=== PATIENT | male | born 1970 | race Caucasian/White ===

== ENCOUNTER 2018-04-06 01:41 | Outpatient (CLI) | payer OTHER, SELFPAY ==
[2018-04-06 10:20] LABS: COMMENT (LAB VIEW ONLY) 356.49 mg/dL; Microalb ug/mg Crea 3.4 ug/mg Cr
[2018-04-06 10:28] LABS: ALT 77 U/L (12-78); AST 48 U/L (15-37); Albumin 3.7 g/dL (3.4-5.0); Alkaline Phosphatase 118 U/L (46-116); Anion Gap 7.4 mmol/L (3-11); BUN 11 mg/dL (7-18); Bilirubin, Total 0.6 mg/dL (0.2-1.0); CO2 29.6 mmol/L (21.0-32.0); CREATININE 1.15 mg/dL (0.70-1.30); Calcium 9.3 mg/dL (8.5-10.1); Chloride 102 mmol/L (98-107); Cholesterol 235 mg/dL (50-200); Glucose 143 mg/dL (70-100); HDL Cholesterol 32 mg/dL (40-60); LDL CHOLESTEROL 73 mg/dL (<100); Potassium 4.6 mmol/L (3.5-5.1); Sodium 139 mmol/L (136-145); TSH (W/Ref FT4) 2.29 uIU/mL (0.358-3.74); Total Protein 7.6 g/dL (6.4-8.2); Triglyceride 554 mg/dL (30-150)
== END 2018-04-06 02:01 ==
PROVIDERS: PCP Family Medicine; Visit Provider Family Medicine
DX: E03.9 Hypothyroidism, unspecified (principal); R03.0 Elevated blood-pressure reading, without diagnosis of hypertension; R73.09 Other abnormal glucose
CPT/HCPCS: 36415; 80053; 80061; 83721; 82043; 82570; 83036; 84443

== ENCOUNTER 2018-05-24 13:09 | Emergency (ER) | payer OTHER, SELFPAY ==
[2018-05-24 13:28] VITALS: BP 178/88; PULSE 80; RESP 14; TEMP 36.9; O2SAT 98
[2018-05-24] MEDS: Normal Saline 1,000 ML 1000 ML IV ×2 (13:42→14:08)
[2018-05-24 13:44] LABS: Bilirubin Negative (Negative); Blood Moderate (Negative); Clarity Clear; Glucose 100 mg/dL (Negative); Ketones Negative (Negative); Leukocyte Esterase Negative (Negative); Nitrite Negative (Negative); Urobilinogen 0.2 EU/dL (Up TO 0.2); pH 5.5 (5-8)
--- NOTE | 2018-05-24 13:50 | DI.CT_ITS ---
SYMPTOM/DIAGNOSIS: RT FLANK PAIN, ? STONE ABDOMEN AND PELVIC CT: CT examination of the abdomen and pelvis was performed without contrast administration. Visualized lung bases are clear. Visualized portions of the liver and spleen appear unremarkable by noncontrast criteria as does the pancreas. No biliary dilatation is seen and the gallbladder is contracted. Abdominal aorta is of normal diameter. No significant abdominal wall hernia is seen. No significant abdominal or pelvic adenopathy is seen. Appendix is normal. No evidence of bowel obstruction or diverticulitis. The adrenals appear normal bilaterally. There is an apparent 3 mm. in diameter stone which may lie within the urinary bladder or in the distal portion of the intramural ureter entering the urinary bladder. There is mild dilatation of right ureter and mild right hydronephrosis. There is an additional 3 mm., probably intraureteral calculus on the right. No left sided ureteral calculi identified. CONCLUSION: Findings of right hydronephrosis and hydroureter to the level of the distal right ureter where there is a 3 mm. in diameter stone just above the ureterovesical junction and a possible intramural UVJ stone as well.
--- NOTE | 2018-05-24 13:52 | ED.GENADUL_ITS ---
Discharge Plan Disposition Patient Disposition: HOME Condition: Improving Discharge Details Chief Complaint: FlankPain Clinical Impression: Ureterolithiasis Primary Care Provider: Sandy Campos ED Provider: Aissatou Mas Home Meds and New Rx's Prescriptions: New ketorolac 10 mg tablet 10 mg PO Q6H PRN (Reason: pain) 2 Days Qty: 8 RF: 0 tamsulosin [Flomax] 0.4 mg capsule 0.4 mg PO DAILY Qty: 7 RF: 0 Continued metformin 500 mg tablet 500 mg PO BID Qty: 180 RF: 4 atorvastatin [Lipitor] 40 mg tablet 40 mg PO DAILY Qty: 90 RF: 4 levothyroxine 75 mcg tablet 75 mcg PO DAILY Qty: 90 RF: 12 sertraline [Zoloft] 100 mg tablet 150 mg PO DAILY Qty: 135 RF: 4 acetaminophen [Mapap Extra Strength] 500 MG tablet 1,000 mg PO PRN PRNRF: 0 potassium citrate 10 mEq (1,080 mg) Tablet Extended Release 10 meq PO BID RF: 0 Discharge Instructions Instructions: Kidney Stones (ED) Additional Instructions: Take the Zofran as needed and directed for nausea or vomiting. Take the Toradol as needed and directed for pain. Drink plenty of fluids. Call your urologist at [facility] tomorrow morning to schedule follow-up appointment for reevaluation. Return immediately to the emergency department with any worsening or new concerning symptoms. Discharge Data Discharge Date/Time-TO BE ENTERED AT DEPARTURE: 05/24/18 16:01 Discharge Physician: Aissatou Mas Medical Decision Making 47-year-old male with a history of kidney stones who presents with right flank pain and nausea consistent with previous kidney stones in the past since noon today. Passed a kidney stone 2 days ago. Blood pressure hypertensive, remainder vitals within normal limits. Abdomen soft and nontender. Patient appears nontoxic. No CVA tenderness. Appears consistent with likely kidney stone. Will place an IV, bolus IV fluids, labs, urinalysis and CT renal colic and a dose of Toradol. 1500 -- pt feels much better, pain significantly improved after toradol. Labs and imaging reviewed. Normal white blood cell count and electrolytes. Normal renal function. Urinalysis notes blood but negative for infection. CT notes multiple stones in the distal ureter and near UV junction on right. Final read pending. 1530 --CT notes one 3 mm ureteral calculus causing dilatation in the right ureter and right collecting system as well as one 3 mm calculus in the right UVJ or bladder. Right kidney edematous. Patient states he feels much better and is requesting to go home. Patient is followed by [facility] urology for his kidney stones. He requests a prescription for Toradol for home. 2 tabs of Toradol given for home as well as prescription. 1 dose of Flomax given here as well as prescription. 2 tabs of Zofran given for home per patient request. Patient instructed to drink plenty of fluids and call his urologist at [facility] tomorrow to schedule a follow-up appointment for reevaluation. Patient has a strainer at home. He is instructed to return here immediately with any worsening or new concerning symptoms. Medical Records Medical records reviewed: Yes I reviewed the patient's medical records. Imaging Data Radiologic Study: Radiologist's impression: CT Abdomen and Pelvis Without Contrast EXAM DATE/TIME: 05/24/2018 1:52 PM FINDINGS: Lower thorax: No acute findings. ABDOMEN: Liver: Normal. No mass. Gallbladder and bile ducts: The gallbladder is contracted Pancreas: Normal. No ductal dilation. Spleen: Splenomegaly 15-16 cm. Adrenals: Normal. No mass. Kidneys and ureters: 3 millimeter distal RIGHT ureteral calculus causes dilatation of the RIGHT ureter, and RIGHT collecting system. There is also a 3 mm calculus in the right UVJ or in the bladder. The RIGHT kidney is edematous.. Stomach and bowel: Normal. No obstruction. No mucosal thickening. Appendix: Normal appendix PELVIS: Bladder: See Kidneys And Ureters Finding. Reproductive: Unremarkable as visualized. ABDOMEN and PELVIS: Intraperitoneal space: Normal. No free air. No significant fluid collection. Bones/joints: No acute fracture. No dislocation. Soft tissues: Unremarkable. Vasculature: Normal. No abdominal aortic aneurysm. Lymph nodes: Normal. No enlarged lymph nodes. IMPRESSION: 1. 3 millimeter distal RIGHT ureteral calculus causes dilatation of the RIGHT ureter, and RIGHT collecting system. There is also a 3 mm calculus in the right UVJ or in the bladder. The RIGHT kidney is edematous.. 2. Splenomegaly 15-16 cm. Lab Data Lab results reviewed: Yes I reviewed the patient's lab results. Laboratory Tests Range/Units 05/24/18 05/24/18 05/24/18 13:32 13:38 13:38 WBC (4.4-10.8) k/cumm 5.75 RBC (4.50-6.00) m/cumm 5.24 Hgb (13.5-17.5) g/dL 14.1 Hct (40.0-50.0) % 41.6 MCV (80-95) fL 79.4 L MCH (27.0-33.0) pg 26.9 L MCHC (32.0-36.0) g/dL 33.9 RDW (11.8-14.1) % 13.8 Plt Count (130-400) x1000/uL 225 MPV (8.0-11.0) fL 10.4 Immature Gran % 0.5 Neutrophils % 63.1 Lymphocytes % 27.0 Monocytes % 6.8 Eosinophils % 1.7 Basophils % 0.9 Absolute Neutrophils (1.2-6.7) k/cumm 3.63 Absolute Lymphocytes (1.2-3.4) k/cumm 1.55 Absolute Monocytes (0.11-0.7) k/cumm 0.39 Absolute Eosinophils (0.0-0.7) k/cumm 0.10 Absolute Basophils (0.0-0.2) k/cumm 0.05 Sodium (136-145) mmol/L 137 Potassium (3.5-5.1) mmol/L 4.1 Chloride (98-107) mmol/L 100 Carbon Dioxide (21.0-32.0) mmol/L 28.6 Anion Gap (3-11) mmol/L 8.4 BUN (7-18) mg/dL 10 Creatinine (0.70-1.30) mg/dL 1.19 Estimated GFR/1.73 m2 (mL/min/1.73m2) >= 60.00 Glucose (70-100) mg/dL 229 H Calcium (8.5-10.1) mg/dL 8.7 Total Bilirubin (0.2-1.0) mg/dL 0.5 AST (15-37) U/L 35 ALT (12-78) U/L 62 Alkaline Phosphatase (46-116) U/L 122 H Total Protein (6.4-8.2) g/dL 7.8 Albumin (3.4-5.0) g/dL 3.6 Urine Color (Yellow) Yellow Urine Clarity Clear Urine pH (5-8) 5.5 Ur Specific [place] (1.005-1.025) 1.020 Urine Protein (Negative) mg/dL Negative Urine Ketones (Negative) mg/dL Negative Urine Blood (Negative) Moderate H Urine Nitrite (Negative) Negative Urine Bilirubin (Negative) Negative Urine Urobilinogen (Up TO 0.2) EU/dL 0.2 Ur Leukocyte Esterase (Negative) Negative Urine RBC (0-2) 20-50 H Urine WBC (0-5) HPF 0-2 Ur Epithelial Cells (Negative) HPF Few Urine Crystals (Negative) HPF Negative Urine Bacteria (Negative) HPF Negative Urine Casts (Negative) LPF Negative Urine Mucus (Negative) Negative Ur Culture Indicated? No Urine Glucose (Negative) mg/dL 100 HPI General Mode of arrival: ambulatory . Date/Time Provider Initiated Documentation: 05/24/18 13:12 . Limitations to Documentation: no limitations . Information obtained by: patient . HPI Narrative: Patient is a 47-year-old male with a history of kidney stones, diabetes, depression, hypothyroidism hyperlipidemia who presents with right-sided flank pain since noon today. Patient states he had similar pain 2 days ago for which she passed a small kidney stone. He has had multiple kidney stones in the past and states this pain feels similar. He states he had some nausea earlier today and took Zofran with relief. He denies any fever, vomiting, radiation of pain into groin, urinary symptoms. He states his urine appeared dark and orange this morning but denies any known blood clots. Related Data Home Medications Medication Instructions Recorded Confirmed acetaminophen [Mapap Extra 1,000 mg PO PRN PRN 03/30/17 05/24/18 Strength] atorvastatin 40 mg tablet 40 mg PO DAILY #90 tab-cap 03/10/18 05/24/18 levothyroxine 75 mcg tablet 75 mcg PO DAILY #90 tab-cap 03/10/18 05/24/18 sertraline 100 mg tablet 150 mg PO DAILY #135 tab-cap 03/10/18 05/24/18 metformin 500 mg tablet 500 mg PO BID #180 tab 04/07/18 05/24/18 ketorolac 10 mg PO Q6H PRN 2 Days #8 tab 05/24/18 potassium citrate 10 meq PO BID 05/24/18 05/24/18 tamsulosin [Flomax] 0.4 mg PO DAILY #7 cap 05/24/18 Previous Rx's Medication Instructions Recorded atorvastatin 40 mg tablet 40 mg PO DAILY #90 tab-cap 03/10/18 levothyroxine 75 mcg tablet 75 mcg PO DAILY #90 tab-cap 03/10/18 sertraline 100 mg tablet 150 mg PO DAILY #135 tab-cap 03/10/18 metformin 500 mg tablet 500 mg PO BID #180 tab 04/07/18 ketorolac 10 mg PO Q6H PRN 2 Days #8 tab 05/24/18 tamsulosin [Flomax] 0.4 mg PO DAILY #7 cap 05/24/18 Allergies Allergy/AdvReac Type Severity Reaction Status Date / Time No Known Allergies Allergy Unverified 05/24/18 13:42 General Stated Complaint: FlankPain SUDHIR: 3 Review of Systems Review of Systems All systems reviewed & are unremarkable except as noted in HPI and below Constitutional Reports as per HPI, Denies chills and Denies fever(s) Eyes Denies blurry vision ENT Denies dizziness, Denies sore throat and Denies throat swelling Cardiovascular Denies chest pain and Denies dyspnea Respiratory Denies cough and Denies dyspnea Gastrointestinal Denies abdominal pain, Denies diarrhea, Reports nausea and Denies vomiting Genitourinary Denies hematuria, Denies dysuria and Reports flank pain (right side) Musculoskeletal Denies back pain and Denies numbness Integumentary/Breasts Denies lesions and Denies rash Neurologic Denies dizziness, Denies focal weakness and Denies numbness Allergic/Immunologic Denies throat swelling [facility] Medical History Nondisplaced fracture of lateral malleolus of left fibula, initial encounter for closed fracture (Chronic 11/03/14) Degeneration of cervical intervertebral disc (Chronic 01/08/11) Depressive disorder (Chronic 01/08/11) Diabetes mellitus (Chronic) Hypercholesterolemia (Chronic 11/20/09) Hypothyroidism (Chronic 01/23/15) Increased body mass index (Chronic) Kidney stone (Chronic 01/08/11) Annual physical exam (Resolved 01/24/15) Benign neoplasm of skin of arm (Resolved) Chronic sinusitis, unspecified (Resolved 04/18/14) Elev transaminase/LDH (Resolved) Sinusitis (Resolved) Spasm of muscle (Resolved) Depression Hypercholesteremia Surgical History H/O arthroscopy of knee (Resolved) Arthroplasty of knee Family History Mother Personal history of malignant neoplasm Father Personal history of malignant neoplasm Heart disease Hyperlipidemia Sister Personal history of malignant neoplasm Brother No problems noted. Grandfather No problems noted. Grandfather No problems noted. Grandmother No problems noted. Grandmother Heart disease Social History Smoking/Tobacco Use Status: Never Alcohol Intake: never Drug use: Never Substance use type: does not use Do you feel safe at home: Yes Do you feel safe in your relationship?: Yes Exam Const General: cooperative, healthy appearing and no acute distress HENMT Head: normal to inspection Face and sinus: normal facial exam Eyes General: appearance normal, both eyes and all related structures EOM: EOM intact bilaterally Neck Neck: normal visual inspection and No submandibular swelling Lymphatic: no lymphadenopathy noted Chest Chest: normal inspection of the chest and no tenderness Resp Effort & Inspection: normal respiratory effort and able to speak in complete sentences Auscultation: clear to auscultation bilaterally Cardio Rate: regular rate Rhythm: regular rhythm GI Inspection: normal to inspection Palpation: soft, not firm, not rigid and nontender Auscultation: normal bowel sounds Male General Exam: Yes normal external exam Back/Spine/Pelvis Back: no CVA tenderness Thoracic/Lumbar Spine: thoracic and lumbar spine normal to inspection Pelvis: no pain with anterior-posterior compression Skin General skin exam: no rashes or lesions noted Neuro General: alert, awake and oriented x3 Cognition: normal cognition Speech: speech normal Motor: muscle tone normal throughout Sensory Exam: no sensory deficits noted Extrem General: normal to inspection, full ROM and no edema Psych Appearance: grossly normal Mental Status: mental status grossly normal Speech and Movement: speech and movement normal Affect: normal affect Course Vital Signs Temperature 98.4 F 05/24/18 13:28 Pulse 80 05/24/18 13:28 Respiratory Rate 14 05/24/18 13:28 Blood Pressure 178/88 H 05/24/18 13:28 Pulse Oximetry 98 05/24/18 13:28 Temperature 98.4 F 05/24/18 13:28 Temperature Source Temporal Artery Scan 05/24/18 13:28 Pulse 80 05/24/18 13:28 Respiratory Rate 14 05/24/18 13:28 Blood Pressure 178/88 H 05/24/18 13:28 Blood Pressure Position Sitting 05/24/18 13:28 Pulse Oximetry 98 05/24/18 13:28 Oxygen Delivery Method Room Air 05/24/18 13:28 Oxygen Flow Rate 0 05/24/18 13:28 Pain Level 7 05/24/18 13:28 Lab/Test Results Lab/Test Results: Laboratory Tests Range/Units 05/24/18 13:32 Urine Color (Yellow) Yellow Urine Clarity Clear Urine pH (5-8) 5.5 Ur Specific [place] (1.005-1.025) 1.020 Urine Protein (Negative) mg/dL Negative Urine Ketones (Negative) mg/dL Negative Urine Blood (Negative) Moderate H Urine Nitrite (Negative) Negative Urine Bilirubin (Negative) Negative Urine Urobilinogen (Up TO 0.2) EU/dL 0.2 Ur Leukocyte Esterase (Negative) Negative Urine Glucose (Negative) mg/dL 100
[2018-05-24] MEDS: Ketorolac 30 MG/ML VIAL (13:54)
[2018-05-24 14:01] LABS: Abs Immature Grans 0.03 k/cumm (0.0-0.09); Absolute Basophil Count 0.05 k/cumm (0.0-0.2); Absolute Lymphocyte Count 1.55 k/cumm (1.2-3.4); Absolute Monocyte Count 0.39 k/cumm (0.11-0.7); Absolute Neutrophil Count 3.63 k/cumm (1.2-6.7); Basophils % 0.9; Eosinophils % 1.7; HCT 41.6 % (40.0-50.0); HGB 14.1 g/dL (13.5-17.5); Immature Grans % 0.5; Mean Corp. HGB Concentration 33.9 g/dL (32.0-36.0); Mean Corpuscular Hemoglobin 26.9 pg (27.0-33.0); Mean Corpuscular Volume 79.4 fL (80-95); Mean Platelet Volume 10.4 fL (8.0-11.0); Monocytes % 6.8; Neutrophils % 63.1; Platelet Count 225 x1000/uL (130-400); RBC 5.24 m/cumm (4.50-6.00); RBC Distribution Width 13.8 % (11.8-14.1); White Blood Cell Count 5.75 k/cumm (4.4-10.8)
[2018-05-24 14:07] LABS: Bacteria Negative HPF (Negative); C & S Indicated? No; Casts Negative LPF (Negative); Crystals Negative HPF (Negative); Epithelial Cells Few HPF (Negative); Mucus Negative (Negative); RBC 20-50 (0-2); WBC 0-2 HPF (0-5)
[2018-05-24 14:15] LABS: ALT 62 U/L (12-78); AST 35 U/L (15-37); Albumin 3.6 g/dL (3.4-5.0); Alkaline Phosphatase 122 U/L (46-116); Anion Gap 8.4 mmol/L (3-11); BUN 10 mg/dL (7-18); Bilirubin, Total 0.5 mg/dL (0.2-1.0); CO2 28.6 mmol/L (21.0-32.0); CREATININE 1.19 mg/dL (0.70-1.30); Calcium 8.7 mg/dL (8.5-10.1); Chloride 100 mmol/L (98-107); Glucose 229 mg/dL (70-100); Potassium 4.1 mmol/L (3.5-5.1); Sodium 137 mmol/L (136-145); Total Protein 7.8 g/dL (6.4-8.2)
--- NOTE | 2018-05-24 15:29 | DI.VRAD_ITS ---
EXAM: CT Abdomen and Pelvis Without Contrast EXAM DATE/TIME: 05/24/2018 1:52 PM CLINICAL HISTORY: 47 years old, male; Pain; Abdominal pain; Flank; Right; Patient HX: RT flank pain, TECHNIQUE: Imaging protocol: Axial computed tomography images of the abdomen and pelvis without contrast. Coronal and sagittal reformatted images were created and reviewed. Radiation optimization: All CT scans at this facility use at least one of these dose optimization techniques: automated exposure control; mA and/or kV adjustment per patient size (includes targeted exams where dose is matched to clinical indication); or iterative reconstruction. COMPARISON: CT RENAL COLIC WO CONTRAST 02/27/2015 5:49 AM FINDINGS: Lower thorax: No acute findings. ABDOMEN: Liver: Normal. No mass. Gallbladder and bile ducts: The gallbladder is contracted Pancreas: Normal. No ductal dilation. Spleen: Splenomegaly 15-16 cm. Adrenals: Normal. No mass. Kidneys and ureters: 3 millimeter distal RIGHT ureteral calculus causes dilatation of the RIGHT ureter, and RIGHT collecting system. There is also a 3 mm calculus in the right UVJ or in the bladder. The RIGHT kidney is edematous.. Stomach and bowel: Normal. No obstruction. No mucosal thickening. Appendix: Normal appendix PELVIS: Bladder: See Kidneys And Ureters Finding. Reproductive: Unremarkable as visualized. ABDOMEN and PELVIS: Intraperitoneal space: Normal. No free air. No significant fluid collection. Bones/joints: No acute fracture. No dislocation. Soft tissues: Unremarkable. Vasculature: Normal. No abdominal aortic aneurysm. Lymph nodes: Normal. No enlarged lymph nodes. IMPRESSION: 1. 3 millimeter distal RIGHT ureteral calculus causes dilatation of the RIGHT ureter, and RIGHT collecting system. There is also a 3 mm calculus in the right UVJ or in the bladder. The RIGHT kidney is edematous.. 2. Splenomegaly 15-16 cm. Dictated and Authenticated by: Milagros Cole MD. Ordering:KARY Reyez MD
[2018-05-24] MEDS: Ondansetron O.D.T. 4 MG TABEF 8 MG PO (15:55)
[2018-05-24] MEDS: Tamsulosin 0.4 MG CAPCR PO (15:55)
[2018-05-24] MEDS: Ketorolac 10 MG TAB 20 MG PO (15:56)
== END 2018-05-24 16:01 | disposition home or self-care (01) ==
PROVIDERS: Emergency Provider Physician Assistant; PCP Family Medicine
DX: N20.1 Calculus of ureter (principal)
CPT/HCPCS: 80053; 96361; 96374; 99284; 74176; 81003; 81015; 85025; J1885

== ENCOUNTER 2018-12-28 08:34 | Outpatient (CLI) | payer OTHER, SELFPAY ==
[2018-12-28 08:56] LABS: Hemoglobin A1C 7.1 % (4.5-6.2)
[2018-12-28 13:10] LABS: Abs Immature Grans 0.01 k/cumm (0.0-0.09); Absolute Basophil Count 0.06 k/cumm (0.0-0.2); Absolute Lymphocyte Count 1.37 k/cumm (1.2-3.4); Absolute Monocyte Count 0.44 k/cumm (0.11-0.7); Absolute Neutrophil Count 3.21 k/cumm (1.2-6.7); Basophils % 1.2; Eosinophils % 1.9; HCT 41.8 % (40.0-50.0); HGB 13.9 g/dL (13.5-17.5); Immature Grans % 0.2; Lymphocytes % 26.4; Mean Corp. HGB Concentration 33.3 g/dL (32.0-36.0); Mean Corpuscular Hemoglobin 26.9 pg (27.0-33.0); Mean Corpuscular Volume 80.9 fL (80-95); Mean Platelet Volume 10.6 fL (8.0-11.0); Monocytes % 8.5; Neutrophils % 61.8; Platelet Count 260 x1000/uL (130-400); RBC 5.17 m/cumm (4.50-6.00); RBC Distribution Width 14.1 % (11.8-14.1); White Blood Cell Count 5.19 k/cumm (4.4-10.8)
[2018-12-28 13:24] LABS: ALT 44 U/L (16-63); AST 24 U/L (15-37); Albumin 3.9 g/dL (3.4-5.0); Alkaline Phosphatase 91 U/L (46-116); Anion Gap 9.3 mmol/L (3-11); BUN 14 mg/dL (7-18); Bilirubin, Total 0.5 mg/dL (0.2-1.0); CO2 27.7 mmol/L (21.0-32.0); CREATININE 1.09 mg/dL (0.70-1.30); Calcium 9.4 mg/dL (8.5-10.1); Calculated LDL 139 mg/dL; Chloride 106 mmol/L (98-107); Cholesterol 226 mg/dL (50-200); Glucose 123 mg/dL (70-100); HDL Cholesterol 36 mg/dL (40-60); Potassium 4.3 mmol/L (3.5-5.1); Sodium 143 mmol/L (136-145); TSH (W/Ref FT4) 2.94 uIU/mL (0.36-3.74); Total Protein 7.5 g/dL (6.4-8.2); Triglyceride 255 mg/dL (30-150)
== END 2018-12-28 08:54 ==
PROVIDERS: PCP Family Medicine; Visit Provider Family Medicine
DX: E03.9 Hypothyroidism, unspecified; D64.9 Anemia, unspecified; E11.9 Type 2 diabetes mellitus without complications; R74.0 Nonspecific elevation of levels of transaminase and lactic acid dehydrogenase [LDH]
CPT/HCPCS: 36415; 80053; 80061; 83036; 84443; 85025

== ENCOUNTER 2019-03-22 08:39 | Outpatient (CLI) | payer OTHER, SELFPAY ==
[2019-03-22 15:21] LABS: Hemoglobin A1C 6.5 % (3.8-5.6)
== END 2019-03-22 08:59 ==
PROVIDERS: PCP Family Medicine; Visit Provider Family Medicine
DX: E11.9 Type 2 diabetes mellitus without complications (principal)
CPT/HCPCS: 36415; 83036

== ENCOUNTER 2019-08-07 00:33 | Emergency (ER) | payer OTHER, SELFPAY ==
[2019-08-07 00:37] VITALS: BP 125/65; PULSE 82; RESP 18; TEMP 37; O2SAT 98
--- NOTE | 2019-08-07 00:40 | W.ED.GENAD ---
Discharge Plan Disposition Patient Disposition: HOME Condition: Stable Discharge Details Chief Complaint: Orthopedic Clinical Impression: Knee pain, right Primary Care Provider: Sandy Campos ED Provider: Rafy Castaneda Home Meds and New Rx's Prescriptions: New prednisone 20 mg tablet 60 mg PO DAILY 4 Days Qty: 12 RF: 0 Continued atorvastatin [Lipitor] 40 mg tablet 40 mg PO DAILY Qty: 90 RF: 4 metformin 500 mg tablet 500 mg PO BID Qty: 180 RF: 4 sertraline [Zoloft] 100 mg tablet 150 mg PO DAILY Qty: 135 RF: 4 potassium citrate 10 mEq (1,080 mg) tablet extended release 10 meq PO BID Qty: 180 RF: 4 levothyroxine 75 mcg tablet 75 mcg PO DAILY Qty: 90 RF: 12 acetaminophen [Mapap Extra Strength] 500 MG tablet 1,000 mg PO PRN PRNRF: 0 Discharge Instructions Instructions: Osteoarthritis (ED) Additional Instructions: your xray did not show any emergent findings, you do have evidence of osteoarthritis which can be the cause of the pain follow up with your primary care provider this week if pain continues return to the emergency department if you have worsening pain, fevers or knee becomes red and swollen return to the emergency department Medical Decision Making 49 yo male with hx of dm, hld, who comes in with right knee pain without any trauma. Has had increased amount of walking recently and unsure if he strained it. He denies fevers, chills, sweling, numbness. Has pain in posterior and anterior knee, has full rom of the knee and can bear weight.NO warmth, erythema, swelling on exam and has pain with palpation to the posterior and anterior knee, no calf pain and no leg swelling normal distal pulses and sensation. Suspect either osteoarthritis, mariscal's cyst, and unlikely dvt or septic joint on exam xray negative for acute findings, has degenerative changes. Will apply ricky wrap and try prednisone, advised f/u with pcp and return precautions given Differential Diagnosis Differential Diagnosis: mariscal's cyst, osteoarthritis Imaging Data Radiologic Study: Attestation: I personally reviewed and interpreted this imaging study as follows: Imaging: X-Ray Radiologist's impression: no acute findings HPI General Mode of arrival: ambulatory. Date/Time Provider Initiated Documentation: 08/07/19 00:35. Limitations to Documentation: no limitations. Information obtained by: patient. History of Present Illness 49 year old M presents to the emergency department with the chief complaint of right knee pain, described as moderate, and it has been constant. No relieving factors improve symptom(s), No exacerbating factors reported . Patient did receive the following treatments prior to arrival, none Related Data Home Medications Medication Instructions Recorded Confirmed acetaminophen [Mapap Extra 1,000 mg PO PRN PRN 03/30/17 08/07/19 Strength] atorvastatin 40 mg tablet 40 mg PO DAILY #90 tab-cap 12/31/18 08/07/19 levothyroxine 75 mcg tablet 75 mcg PO DAILY #90 tab-cap 12/31/18 08/07/19 metformin 500 mg tablet 500 mg PO BID #180 tab 12/31/18 08/07/19 potassium citrate 10 mEq (1,080 10 meq PO BID #180 tab 12/31/18 08/07/19 mg) tablet,extended release sertraline 100 mg tablet 150 mg PO DAILY #135 tab-cap 12/31/18 08/07/19 prednisone 60 mg PO DAILY 4 Days #12 tab 08/07/19 Previous Rx's Medication Instructions Recorded atorvastatin 40 mg tablet 40 mg PO DAILY #90 tab-cap 12/31/18 levothyroxine 75 mcg tablet 75 mcg PO DAILY #90 tab-cap 12/31/18 metformin 500 mg tablet 500 mg PO BID #180 tab 12/31/18 potassium citrate 10 mEq (1,080 10 meq PO BID #180 tab 12/31/18 mg) tablet,extended release sertraline 100 mg tablet 150 mg PO DAILY #135 tab-cap 12/31/18 prednisone 60 mg PO DAILY 4 Days #12 tab 08/07/19 Allergies Allergy/AdvReac Type Severity Reaction Status Date / Time morphine AdvReac vomit Verified 08/07/19 00:41 General Stated Complaint: Orthopedic SUDHIR: 4 Review of Systems All systems reviewed & are unremarkable except as noted in HPI and below Constitutional Constitutional: Denies chills, Denies fever(s) and Denies weakness Cardiovascular Cardiovascular: Denies chest pain and Denies dyspnea Respiratory Respiratory: Denies cough and Denies dyspnea Gastrointestinal Gastrointestinal: Denies abdominal pain, Denies nausea and Denies vomiting Musculoskeletal Musculoskeletal: Denies joint swelling Neurologic Neurologic: Denies weakness Psychiatric Psychiatric: Denies depression [facility] Medical History (Updated 06/27/20 @ 01:11 by Rafy Castaneda MD) Abnormal finding on thyroid function test (Inactive 07/26/14) Annual physical exam (Resolved 01/24/15) Benign neoplasm of skin of arm (Resolved) 01/08/11 left irritated palm lesion Benign neoplasm of skin of arm (Inactive 01/08/11) Chronic sinusitis, unspecified (Resolved 04/18/14) Degeneration of cervical intervertebral disc (Chronic 01/08/11) C-5 Depression Depressive disorder (Chronic 01/08/11) Diabetes mellitus (Chronic) Elev transaminase/LDH (Resolved) 11/20/09 Elevation of level of transaminase and lactic acid dehydrogenase (LDH) (Inactive 11/20/09) Hypercholesteremia Hypercholesterolemia (Chronic 11/20/09) Increased body mass index (Chronic) Kidney stone (Chronic 01/08/11) Muscle spasm (Inactive 07/22/12) Nondisplaced fracture of lateral malleolus of left fibula, initial encounter for closed fracture (Resolved 11/03/14) Sinusitis (Resolved) 04/18/14 Sinusitis (Inactive 04/18/14) Spasm of muscle (Resolved) 07/22/12 Surgical History (Updated 12/31/18 @ 11:57 by Sandy Campos MD, [place]) Arthroplasty of knee Right, by Dr. Redman.HE H/O arthroscopy of knee (Resolved) right History of arthroscopy of knee (Inactive) Social History Smoking/Tobacco Use Status: Never Alcohol Intake: never Drug use: Never Substance use type: does not use Do you feel safe at home: Yes Do you feel safe in your relationship?: Yes Exam Const General: no acute distress Orientation: alert [facility] Head: normal to inspection Ears: external ears normal General nose exam: external nose normal Mouth: moist mucous membranes Eyes General: appearance normal, both eyes and all related structures Neck Neck: normal visual inspection Resp Effort & Inspection: normal respiratory effort and able to speak in complete sentences Cardio Rate: regular rate Skin General skin exam: no rashes or lesions noted Neuro General: patient alert and patient oriented x3 Extrem General: normal to inspection, full ROM and capillary refill normal Psych Mental Status: mental status grossly normal Course Vital Signs Vital signs: Vital Signs Temperature 37.0 C 08/07/19 00:37 Pulse 82 08/07/19 00:37 Respiratory Rate 18 08/07/19 00:37 Blood Pressure 125/65 08/07/19 00:37 Pulse Oximetry 98 08/07/19 00:37 Temperature 37.0 C 08/07/19 00:37 Temperature Source Oral 08/07/19 00:37 Pulse 82 08/07/19 00:37 Respiratory Rate 18 08/07/19 00:37 Blood Pressure 125/65 08/07/19 00:37 Pulse Oximetry 98 08/07/19 00:37 Pain Level 3 08/07/19 00:37
[2019-08-07] MEDS: Ibuprofen 600 MG TAB PO (00:43)
--- NOTE | 2019-08-07 00:49 | DI.RAD_ITS ---
EXAM: XR KNEE RT 3V AP,LAT,ANITA CLINICAL HISTORY: knee pain. TECHNIQUE: 2D digital imaging was performed. COMPARISON: CR CHEST 2 VIEWS PA,LAT from 03/30/2017 FINDINGS: BONES: No acute fracture is present. No bony destructive lesion is seen. A small enthesophyte is seen at the superior patella. JOINTS: The knee is normally aligned. No joint effusion is seen. There are mild degenerative changes present. SOFT TISSUE: Normal. IMPRESSION: No acute abnormality. DATA REPOSITORY: RADIATION DOSE DELIVERED:
--- NOTE | 2019-08-07 01:07 | DI.VRAD_ITS ---
PROCEDURE INFORMATION: Exam: XR Right Knee Exam date and time: 08/07/2019 12:47 AM Age: 49 years old Clinical indication: Pain; Knee; Right; Prior surgery; Surgery date: 6+ months; Surgery type: Acl/mcl scope TECHNIQUE: Imaging protocol: XR Right knee. Views: 3 views. COMPARISON: No relevant prior studies available. FINDINGS: Bones/joints: No acute fracture. No dislocation. Mild degenerative changes are seen. Soft tissues: Unremarkable. IMPRESSION: No acute osseous abnormality. Dictated and Authenticated by: Lewis Shelley MD. Ordering:MAEVE Hillman MD
[2019-08-07] MEDS: predniSONE 20 MG TAB 60 MG PO (01:17)
== END 2019-08-07 01:20 | disposition home or self-care (01) ==
LOC: ER 01:21
PROVIDERS: Emergency Provider Emergency Medicine; PCP Family Medicine
DX: M25.561 Pain in right knee (principal); M17.11 Unilateral primary osteoarthritis, right knee; E11.9 Type 2 diabetes mellitus without complications; Z79.84 Long term (current) use of oral hypoglycemic drugs
CPT/HCPCS: 73562; 99284; J7512

== ENCOUNTER 2020-01-19 14:20 | Emergency (ER) | payer BC, SELFPAY ==
--- NOTE | 2020-01-19 14:25 | W.ED.GENAD ---
Discharge Plan Disposition Patient Disposition: HOME Condition: Improving Discharge Details Clinical Impression: Ureterolithiasis Primary Care Provider: Sandy Campos ED Provider: Aissatou Mas Home Meds and New Rx's Prescriptions: New tamsulosin [Flomax] 0.4 mg capsule 0.4 mg PO DAILY 10 Days Qty: 10 RF: 0 oxycodone 5 mg tablet 5 mg PO Q6H PRN (Reason: pain) Qty: 7 RF: 0 ondansetron 4 mg tablet,disintegrating 4 mg PO TID PRN (Reason: nausea and vomiting) Qty: 6 RF: 0 Continued ibuprofen 200 mg tablet 600 mg PO PRN PRNRF: 0 atorvastatin [Lipitor] 40 mg tablet 40 mg PO DAILY Qty: 90 RF: 4 metformin 500 mg tablet 500 mg PO BID Qty: 180 RF: 4 levothyroxine 75 mcg tablet 75 mcg PO DAILY Qty: 90 RF: 12 potassium citrate 10 mEq (1,080 mg) tablet extended release 10 meq PO BID Qty: 180 RF: 4 sertraline [Zoloft] 100 mg tablet 150 mg PO DAILY Qty: 135 RF: 4 Discharge Instructions Instructions: Kidney Stones (ED) Additional Instructions: Drink plenty of fluids and get plenty of rest. Take the Flomax daily. Alternate tylenol and motrin as needed and directed for pain. Take the oxycodone for pain not relieved with Tylenol or Motrin. Take the Zofran as needed and directed for nausea and vomiting. Call urology to schedule a follow-up appointment for reevaluation. They may also follow-up with you to determine when follow-up is necessary. Return immediately to the emergency department if you develop any worsening or new concerning symptoms. Referrals: Sekou Bustillo MD [ [facility] STAFF PHYSICIAN] - Discharge Data Discharge Date/Time-TO BE ENTERED AT DEPARTURE: 01/19/20 16:33 Discharge Physician: Aissatou Mas Medical Decision Making 1440 -- 49-year-old male with a history of kidney stones presents with urinary frequency, hematuria and right flank pain and 2 episodes of vomiting that started 2 hours ago similar to previous kidney stones. Urinalysis obtained on arrival and notes blood but no evidence of infection. Patient appears uncomfortable but nontoxic. Suspect most likely kidney stone. Will place an IV, bolus IV fluids, screening labs, urinalysis, CT renal colic and give a dose of Toradol and Zofran and reassess. 1515 -- Labs and imaging reviewed. Normal white blood cell count and renal function. CT renal colic notes IMPRESSION: Bilateral nonobstructing renal calculi, right greater than left. Obstructing calculus at the ureterovesical junction on the right, 3 millimeters in diameter, unchanged from prior scans including May 2018. Mild resultant right hydronephrosis and hydroureter. 1530 -- Pt reassessed and he feels much better. Images reviewed with radiology Dr. Tellez who notes that due to similar appearance on previous renal CT, there is a possibility of a stone embedded within the bladder wall which can be better assessed with outpatient cystoscopy or CT urogram. Case d/w Demetrice from urology and she recommends f/u with urology within the next 1-2 weeks. Pt states he is followed by [facility] urology - CT disc given for urology f/u. Patient feels good to go home. He was given oxycodone and Zofran prescriptions. Usual and customary return precautions given prior to discharge. Medical Records Medical records reviewed: Yes I reviewed the patient's medical records. Imaging Data Radiologic Study: Radiologist's impression: CT RENAL COLIC WO INDICATION: R flank pain, r/o kidney stone. COMPARISON: CT CT renal colic wo from 05/24/2018 TECHNIQUE: CT examination was performed without contrast administration. FINDINGS: Images obtained through the lung bases are unremarkable. Visualized portions of the liver and spleen appear intact. Visualized portions of the pancreas are unremarkable. Gallbladder and bile ducts are CT normal. Abdominal aorta is of normal diameter. No significant abdominal wall hernia. No significant abdominal or pelvic adenopathy. Adrenals appear normal bilaterally. The kidneys show normal size and shape. There is mild right hydronephrosis and hydroureter to the level of the ureterovesical junction. There are bilateral nonobstructing renal calculi, most of these on the right-side. There is no left hydronephrosis or hydroureter. There is a 3 millimeter in diameter obstructing calculus of the ureterovesical junction on the right, as noted on prior CT examinations. No significant change from the prior studies. Urinary bladder is nearly empty. IMPRESSION: Bilateral nonobstructing renal calculi, right greater than left. Obstructing calculus at the ureterovesical junction on the right, 3 millimeters in diameter, unchanged from prior scans including May 2018. Mild resultant right hydronephrosis and hydroureter. Lab Data Lab results reviewed: Yes I reviewed the patient's lab results. Labs: Laboratory Tests Range/Units 01/19/20 01/19/20 01/19/20 14:29 14:49 14:49 WBC (4.4-10.8) 10^3/uL 6.11 RBC (4.36-5.78) 10^6/uL 5.18 Hgb (13.5-17.5) g/dL 13.8 Hct (40.0-50.0) % 41.8 MCV (80-95) fL 80.7 MCH (27.0-33.0) pg 26.6 L MCHC (32.0-36.0) % 33.0 RDW (11.8-14.1) % 12.7 Plt Count (130-400) 10^3/uL 224 MPV (8.0-11.0) fL 10.4 Immature Gran % 0.5 Neutrophils % 60.8 Lymphocytes % 27.8 Monocytes % 8.5 Eosinophils % 1.6 Basophils % 0.8 Nucleated RBC % % 0 Absolute Neutrophils (1.2-6.7) 10^3/uL 3.71 Absolute Lymphocytes (1.2-3.4) 10^3/uL 1.70 Absolute Monocytes (0.1-0.8) 10^3/uL 0.52 Absolute Eosinophils (0.0-0.7) 10^3/uL 0.10 Absolute Basophils (0.0-0.2) 10^3/uL 0.05 Sodium (136-145) mmol/L 139 Potassium (3.5-5.1) mmol/L 3.7 Chloride (98-107) mmol/L 103 Carbon Dioxide (21.0-32.0) mmol/L 27.9 Anion Gap (3-11) mmol/L 8.1 BUN (7-18) mg/dL 12 Creatinine (0.70-1.30) mg/dL 1.12 Estimated GFR/1.73 m2 (mL/min/1.73m2) >= 60.00 Glucose (74-106) mg/dL 143 H Calcium (8.5-10.1) mg/dL 8.9 Total Bilirubin (0.2-1.0) mg/dL 0.6 AST (15-37) U/L 31 ALT (16-63) U/L 60 Alkaline Phosphatase (46-116) U/L 106 Total Protein (6.4-8.2) g/dL 7.7 Albumin (3.4-5.0) g/dL 3.9 Lipase (73-393) U/L 180 Urine Color (Yellow) Yellow Urine Clarity (Clear) Clear Urine pH (5-8) 5.5 Ur Specific [place] (1.005-1.025) 1.025 Urine Protein (Negative) mg/dL Negative Urine Ketones (Negative) mg/dL Negative Urine Blood (Negative) Moderate H Urine Nitrite (Negative) Negative Urine Bilirubin (Negative) Negative Urine Urobilinogen (Up TO 0.2) EU/dL 0.2 Ur Leukocyte Esterase (Negative) Negative Urine RBC (0-2) HPF >50 H Urine WBC (0-5) HPF Negative Ur Epithelial Cells (Negative) HPF Negative Urine Crystals (Negative) HPF Negative Urine Bacteria (Negative) HPF Few Urine Casts (Negative) LPF Negative Urine Mucus (Negative) Moderate Urine Other (Negative) Few renal Ur Culture Indicated? No Urine Glucose (Negative) mg/dL Negative HPI General Mode of arrival: ambulatory. Date/Time Provider Initiated Documentation: 01/19/20 14:24. Limitations to Documentation: no limitations. Information obtained by: patient. HPI Narrative: Patient is a 49-year-old male with a history of kidney stones, diabetes, hyperlipidemia and obesity who presents for right flank pain and urinary frequency for the past 2 hours. He states 2 days ago he felt that he had a kidney stone with similar symptoms but then symptoms resolved so he assumed that he passed it. He also admits to nausea and vomiting today for which she took Zofran with some relief. He states his symptom presentation feels exactly like his previous kidney stones in the past. He denies any fever. Related Data Home Medications Medication Instructions Recorded Confirmed ibuprofen 200 mg tablet 600 mg PO PRN PRN tab 08/10/19 01/19/20 atorvastatin 40 mg tablet 40 mg PO DAILY #90 tab-cap 01/12/20 01/19/20 levothyroxine 75 mcg tablet 75 mcg PO DAILY #90 tab-cap 01/12/20 01/19/20 metformin 500 mg tablet 500 mg PO BID #180 tab 01/12/20 01/19/20 potassium citrate 10 mEq (1,080 10 meq PO BID #180 tab 01/12/20 01/19/20 mg) tablet,extended release sertraline 100 mg tablet 150 mg PO DAILY #135 tab-cap 01/12/20 01/19/20 ondansetron 4 mg PO TID PRN #6 tab 01/19/20 oxycodone 5 mg PO Q6H PRN #7 tab 01/19/20 tamsulosin [Flomax] 0.4 mg PO DAILY 10 Days #10 cap 01/19/20 Previous Rx's Medication Instructions Recorded atorvastatin 40 mg tablet 40 mg PO DAILY #90 tab-cap 01/12/20 levothyroxine 75 mcg tablet 75 mcg PO DAILY #90 tab-cap 01/12/20 metformin 500 mg tablet 500 mg PO BID #180 tab 01/12/20 potassium citrate 10 mEq (1,080 10 meq PO BID #180 tab 01/12/20 mg) tablet,extended release sertraline 100 mg tablet 150 mg PO DAILY #135 tab-cap 01/12/20 ondansetron 4 mg PO TID PRN #6 tab 01/19/20 oxycodone 5 mg PO Q6H PRN #7 tab 01/19/20 tamsulosin [Flomax] 0.4 mg PO DAILY 10 Days #10 cap 01/19/20 Allergies Allergy/AdvReac Type Severity Reaction Status Date / Time morphine AdvReac vomit Verified 01/19/20 15:12 General SUDHIR: 4 Review of Systems All systems reviewed & are unremarkable except as noted in HPI and below Constitutional Constitutional: Reports as per HPI, Denies chills and Denies fever(s) Eyes Eyes: Denies blurry vision ENT Ears, Nose, Mouth, and Throat: Denies dizziness, Denies sore throat and Denies throat swelling Cardiovascular Cardiovascular: Denies chest pain and Denies dyspnea Respiratory Respiratory: Denies cough and Denies dyspnea Gastrointestinal Gastrointestinal: Denies abdominal pain, Denies diarrhea and Denies vomiting Genitourinary Genitourinary: Reports hematuria and Denies dysuria Musculoskeletal Musculoskeletal: Reports back pain and Denies numbness Integumentary/Breasts Skin/Breast: Denies lesions and Denies rash Neurologic Neurologic: Denies dizziness, Denies localized weakness and Denies numbness Allergic/Immunologic Allergic/Immunologic: Denies throat swelling [facility] Medical History (Updated 01/19/20 @ 15:49 by Aissatou Mas DO) Abnormal finding on thyroid function test (07/26/14) Annual physical exam (01/24/15) Benign neoplasm of skin of arm 01/08/11 left irritated palm lesion Benign neoplasm of skin of arm (01/08/11) Chronic sinusitis, unspecified (04/18/14) Degeneration of cervical intervertebral disc (01/08/11) C-5 Depression Depressive disorder (01/08/11) Diabetes mellitus Elev transaminase/LDH 11/20/09 Elevation of level of transaminase and lactic acid dehydrogenase (LDH) (11/20/09) Hypercholesteremia Hypercholesterolemia (11/20/09) Increased body mass index Kidney stone (01/08/11) Muscle spasm (07/22/12) Nondisplaced fracture of lateral malleolus of left fibula, initial encounter for closed fracture (11/03/14) Sinusitis 04/18/14 Sinusitis (04/18/14) Spasm of muscle 07/22/12 Surgical History (Updated 12/31/18 @ 11:57 by Sandy Campos MD, [place]) Arthroplasty of knee Right, by Dr. Redman.HE H/O arthroscopy of knee right History of arthroscopy of knee Family History Mother Personal history of malignant neoplasm ENDOMETRIAL Father Personal history of malignant neoplasm TESTICULAR Heart disease 9 [place]PASS Hyperlipidemia Sister Personal history of malignant neoplasm BREAST Brother No problems noted. Grandfather No problems noted. Grandfather No problems noted. Grandmother No problems noted. Grandmother Heart disease Social History Smoking/Tobacco Use Status: Never Smoking risk assessment performed?: Yes Alcohol Intake: never Drug use: Never Substance use type: does not use Do you feel safe at home: Yes Do you feel safe in your relationship?: Yes Exam Const General: cooperative, healthy appearing, uncomfortable (slightly) and no acute distress Orientation: alert, awake and oriented x3 HENMT Head: normal to inspection Face and sinus: normal facial exam Eyes General: appearance normal, both eyes and all related structures EOM: EOM intact bilaterally Neck Neck: normal visual inspection and No submandibular swelling Lymphatic: no lymphadenopathy noted Chest Chest: normal inspection of the chest and no tenderness Resp Effort & Inspection: normal respiratory effort and able to speak in complete sentences Auscultation: clear to auscultation bilaterally Cardio Rate: regular rate Rhythm: regular rhythm GI Inspection: normal to inspection Palpation: soft, not firm, not rigid and nontender Auscultation: normal bowel sounds Back/Spine/Pelvis Back: CVA tenderness (Right-sided) Skin General skin exam: no rashes or lesions noted Neuro General: patient alert, patient awake and patient oriented x3 Cognition: normal cognition Speech: speech normal Motor: muscle tone normal throughout Sensory Exam: no sensory deficits noted Extrem General: normal to inspection, full ROM, capillary refill normal, no calf tenderness bilaterally and no edema Psych Appearance: grossly normal Mental Status: mental status grossly normal Speech and Movement: speech and movement normal Affect: normal affect
[2020-01-19 14:32] VITALS: BP 145/89; PULSE 76; RESP 14; TEMP 36.5; O2SAT 97
[2020-01-19 14:45] LABS: Bilirubin Negative (Negative); Blood Moderate (Negative); Clarity Clear (Clear); Glucose Negative (Negative); Ketones Negative (Negative); Leukocyte Esterase Negative (Negative); Nitrite Negative (Negative); Specific Gravity 1.025 (1.005-1.025); Urobilinogen 0.2 EU/dL (Up TO 0.2); pH 5.5 (5-8)
--- NOTE | 2020-01-19 14:45 | DI.CT_ITS ---
EXAM: CT RENAL COLIC WO INDICATION: R flank pain, r/o kidney stone. COMPARISON: CT CT renal colic wo from 05/24/2018 TECHNIQUE: CT examination was performed without contrast administration. FINDINGS: Images obtained through the lung bases are unremarkable. Visualized portions of the liver and splee n appear intact. Visualized portions of the pancreas are unremarkable. Gallbladder and bile ducts are CT normal. Abdominal aorta is of normal diameter. No significant abdominal wall hernia. No significant abdominal or pelvic adenopathy. Adrenals appear normal bilaterally. The kidneys show normal size and shape. There is mild right hydronephrosis and hydroureter to the le tg of the ureterovesical junction. There are bilateral nonobstructing renal calculi, most of these on the right-side. There is no left hydronephrosis or hydroureter. There is a 3 millimeter in diameter obstructing calculus of the ureterovesical junction on the right, as noted on prior CT examinations. No significant change from the prior studies. Urinary bladder i s nearly empty. IMPRESSION: Bilateral nonobstructing renal calculi, right greater than left. Obstructing calculus at the ureterovesical junction on the right, 3 millimeters in diameter, unchange d from prior scans including May 2018. Mild resultant right hydronephrosis and hydroureter. RADIATION DOSE DELIVERED: 1,233.68mGy.cm DLP 1,233.68mGy.cm Total DLP
[2020-01-19 14:53] LABS: Abs Immature Grans 0.03 10^3/uL (0.0-0.06); Absolute Basophil Count 0.05 10^3/uL (0.0-0.2); Absolute Monocyte Count 0.52 10^3/uL (0.1-0.8); Absolute Neutrophil Count 3.71 10^3/uL (1.2-6.7); Basophils % 0.8; Eosinophils % 1.6; HCT 41.8 % (40.0-50.0); HGB 13.8 g/dL (13.5-17.5); Immature Grans % 0.5; Lymphocytes % 27.8; MCH 26.6 pg (27.0-33.0); MCV 80.7 fL (80-95); MPV 10.4 fL (8.0-11.0); Monocytes % 8.5; Neutrophils % 60.8; Nucleated RBC 0 %; Platelet Count 224 10^3/uL (130-400); RBC 5.18 10^6/uL (4.36-5.78); RDW 12.7 % (11.8-14.1); RDW-SD 37.2 fL; WBC 6.11 10^3/uL (4.4-10.8)
[2020-01-19 14:54] LABS: Epithelial Cells Negative HPF (Negative); Other Cells Few Renal (Negative); RBC >50 HPF (0-2); WBC Negative HPF (0-5)
[2020-01-19 14:55] LABS: Bacteria Few HPF (Negative); C & S Indicated? No; Casts Negative LPF (Negative); Crystals Negative HPF (Negative); Mucus Moderate (Negative)
[2020-01-19] MEDS: Normal Saline 1,000 ML 1000 ML IV (14:58)
[2020-01-19] MEDS: Ketorolac 30 MG/ML VIAL IVP (14:58)
[2020-01-19] MEDS: Ondansetron 4 MG/2 ML VIAL IVP (14:59)
[2020-01-19 15:08] LABS: ALT 60 U/L (16-63); AST 31 U/L (15-37); Albumin 3.9 g/dL (3.4-5.0); Alkaline Phosphatase 106 U/L (46-116); Anion Gap 8.1 mmol/L (3-11); BUN 12 mg/dL (7-18); Bilirubin, Total 0.6 mg/dL (0.2-1.0); CO2 27.9 mmol/L (21.0-32.0); CREATININE 1.12 mg/dL (0.70-1.30); Calcium 8.9 mg/dL (8.5-10.1); Chloride 103 mmol/L (98-107); Glucose 143 mg/dL (74-106); Lipase 180 U/L (73-393); Potassium 3.7 mmol/L (3.5-5.1); Sodium 139 mmol/L (136-145); Total Protein 7.7 g/dL (6.4-8.2)
[2020-01-19 15:46] VITALS: BP 148/90; PULSE 70; RESP 18; O2SAT 97
[2020-01-19] MEDS: Tamsulosin 0.4 MG CAPCR PO (15:51)
--- NOTE | 2020-01-19 15:58 | NUR.NOTE ---
Referral faxed to specialty clinic urology.Nursing Note:
[2020-01-19] MEDS: Ondansetron O.D.T. 4 MG TABEF, 3 TABS/BTL PO (16:46)
== END 2020-01-19 16:33 | disposition home or self-care (01) ==
PROVIDERS: Emergency Provider Physician Assistant; PCP Family Medicine
DX: N13.2 Hydronephrosis with renal and ureteral calculous obstruction (principal); N13.4 Hydroureter; Z87.442 Personal history of urinary calculi; E11.9 Type 2 diabetes mellitus without complications; Z79.84 Long term (current) use of oral hypoglycemic drugs
CPT/HCPCS: 36415; 80053; 83690; 96361; 96374; 96375; 99284; 74176; 81003; 81015; 85025; 99285; J1885; J2405

== ENCOUNTER 2020-09-13 03:43 | Outpatient (CLI) | payer BC, SELFPAY ==
[2020-09-13 17:04] LABS: COMMENT (LAB VIEW ONLY) 151.41 mg/dL; Microalb ug/mg Crea 4.1 ug/mg Cr
[2020-09-13 17:05] LABS: Hemoglobin A1C 7.2 % (<5.7)
[2020-09-13 19:27] LABS: ALT 102 U/L (16-63); AST 63 U/L (15-37); Albumin 4.1 g/dL (3.4-5.0); Alkaline Phosphatase 109 U/L (46-116); Anion Gap 10.5 mmol/L (3-11); BUN 11 mg/dL (7-18); Bilirubin, Total 0.8 mg/dL (0.2-1.0); CO2 28.5 mmol/L (21.0-32.0); Calcium 9.2 mg/dL (8.5-10.1); Calculated LDL 44 mg/dL (<100); Chloride 102 mmol/L (98-107); Cholesterol 145 mg/dL (<200); Glucose 97 mg/dL (74-106); HDL Cholesterol 38 mg/dL (40-60); Potassium 4.2 mmol/L (3.5-5.1); Sodium 141 mmol/L (136-145); TSH (W/Ref FT4) 3.25 uIU/mL (0.36-3.74); Total Protein 7.8 g/dL (6.4-8.2); Triglyceride 317 mg/dL (<150)
== END 2020-09-13 03:44 | disposition home or self-care (01) ==
LOC: LBO 03:43
PROVIDERS: PCP Family Medicine; Visit Provider Family Medicine
DX: E78.00 Pure hypercholesterolemia, unspecified (principal); E11.9 Type 2 diabetes mellitus without complications; E03.9 Hypothyroidism, unspecified; F32.9 Major depressive disorder, single episode, unspecified
CPT/HCPCS: 36415; 80053; 80061; 82043; 82570; 83036; 84443

== ENCOUNTER 2021-06-09 10:38 | Emergency (ER) | payer BC, SELFPAY ==
[2021-06-09] VITALS (13 sets, daily range): BP systolic 124–138; BP diastolic 83–87; PULSE 71–84; RESP 14–20; TEMP 36.6; O2SAT 95–99
--- NOTE | 2021-06-09 10:30 | RT.EKG_ITS ---
APPROVED REPORT Exam: Resting ECG Reason for Exam: chest pain Patient Location: E HR:71 bpm ECG Measurements Heart Rate 71 AXIS TX 175 P -4 QRSd 101 QRS 81 QT 392 T 97 QTc 428 Conclusion Sinus rhythm...normal P axis, V-rate 60- 99 Inferior infarct, acute...ST>0.10mV, T upright, II III aVF. +++STEMI+++. 3mm ST elevation in III. 2mm ST elevaiton in II and aVF. ST depression/reciprocal change s in I and aVL, V2.
--- NOTE | 2021-06-09 10:45 | DI.RAD_ITS ---
Exam(s) XR PORTABLE CHEST AP EXAM: XR PORTABLE CHEST AP CLINICAL HISTORY: chest pain, r/o acute disease TECHNIQUE: 2D digital imaging was performed. COMPARISON: CR CHEST 2 VIEWS PA,LAT from 03/30/2017 FINDINGS: Exam is limited by poor pulmonary inflation. The heart size at the upper limits of normal. There ar e mildly increased densities at both lung bases likely representing atelectasis. No evidence of a pn eumothorax, effusion or gross area of consolidation.. IMPRESSION: Limited exam. No acute pulmonary findings. DATA REPOSITORY: RADIATION DOSE DELIVERED:
--- NOTE | 2021-06-09 10:55 | W.ED.GENAD ---
Discharge Plan Disposition Patient Disposition: [facility] Condition: Serious Discharge Details Clinical Impression: STEMI (ST elevation myocardial infarction) Primary Care Provider: Sandy Campos ED Provider: Aissatou Mas Home Meds and New Rx's Prescriptions: No Action ibuprofen 200 mg tablet 600 mg PO PRN PRN0RF sertraline [Zoloft] 100 mg tablet 100 mg PO DAILY Qty: 90 6RF atorvastatin [Lipitor] 40 mg tablet 40 mg PO DAILY Qty: 90 6RF levothyroxine 75 mcg tablet 75 mcg PO DAILY Qty: 90 5RF metformin 500 mg tablet 500 mg PO BID Qty: 180 6RF potassium citrate 10 mEq (1,080 mg) tablet extended release 10 meq PO BID Qty: 180 4RF Discharge Data Discharge Date/Time-TO BE ENTERED AT DEPARTURE: 06/09/21 12:16 Medical Decision Making 1045 -- 50-year-old male with a history of obesity, diabetes, hyperlipidemia who presents for substernal chest heaviness which started 90 minutes ago after lifting a 300 pound air compressor at home prior this morning. EKG on arrival notes an inferior STEMI. STEMI alert called and [facility] transfer center contacted. 325 mg aspirin and 300 mg Plavix ordered. Stat portable chest x-ray notes questionable widened mediastinum compared to previous chest x-ray in 2018. We will hold on heparin bolus and drip at this time. Stat CT chest ordered. We will hold on nitro as this is an inferior STEMI. We will give a dose of Dilaudid which patient states he has tolerated in addition to IV fluids. Case discussed with [facility] cardiology who accepts patient for transfer. Accepting physician Dr. Nuñez. Agrees with plan for holding heparin until CT negative for dissection. Recommends additional 300 mg dose of [address] CT negative. 1110 -- stat portable chest x-ray no documented evidence of widened mediastinum. Opacity in the left lung base may represent atelectasis or pneumonia. Patient has no report of fever or cough to hold on treatment for pneumonia at this time. 1120 -- patient denies any significant relief with first dose of Dilaudid and is complaining or worsening pain. Heart rate 70s. Blood pressure 138/84. We will give another dose of Dilaudid. 1130 --CT chest negative for dissection after discussion with virtual radiology. Heparin bolus and drip started. Patient hemodynamically stable. Results discussed with [facility] cardiology Dr. Mack who notes that we can give 1 dose of nitro if needed. Dose of nitro ordered but not given in the ED. 1155 -- DHART at bedside. Discussed with cardiology who would like to go ahead with full dose lytics based on possibility of not meeting the 120 minutes until [employer]. 50 mg TNKase IV x1 dose given. DHART administered nitro SL x 1. DHART requested potassium PO dose. Pt hemodynamically stable. Medical Records Medical records reviewed: Yes I reviewed the patient's medical records. Imaging Data Radiologic Study: Radiologist's impression: XR Chest Exam date and time: 06/09/2021 10:48 AM Age: 50 years old Clinical indication: Pain; Chest pressure TECHNIQUE: Imaging protocol: XR of the chest. Views: 1 view. COMPARISON: CR CHEST 2 VIEWS PA,LAT 03/30/2017 10:34 PM FINDINGS: Lungs: Opacity in the left base may represent atelectasis or pneumonia.. Pleural spaces: Unremarkable. No pleural effusion. No pneumothorax. Heart/Mediastinum: Cardiomegaly Bones/joints: Unremarkable. IMPRESSION: Opacity in the left base may represent atelectasis or pneumonia. CTA Chest With Contrast Exam date and time: 06/09/2021 11:08 AM Age: 50 years old Clinical indication: Sternal or substernal pain TECHNIQUE: Imaging protocol: Computed tomographic angiography of the chest with contrast. 3D rendering (Not supervised by radiologist): MIP and/or 3D reconstructed images were created by the technologist. Contrast material: OMNIPAQUE 350; Contrast volume: 100 ml; Contrast route: INTRAVENOUS (IV);? COMPARISON: XR PORTABLE CHEST AP 06/09/2021 10:48 AM FINDINGS: Pulmonary arteries: No evidence of pulmonary embolus to the segmental level. Aorta: No aneurysm of the aorta. No dissection of the aorta. Lungs: Unremarkable. No consolidation. No masses. Pleural spaces: Unremarkable. No pneumothorax. No pleural effusion. Heart: Unremarkable. No cardiomegaly. No pericardial effusion. Lymph nodes: Unremarkable. No enlarged lymph nodes. Bones/joints: Unremarkable. No acute fracture. Soft tissues: Unremarkable. IMPRESSION: 1. No evidence of pulmonary embolus to the segmental level. 2. No aneurysm of the aorta. 3. No dissection of the aorta. Lab Data Lab results reviewed: Yes I reviewed the patient's lab results. Labs: Laboratory Tests Range/Units 06/09/21 06/09/21 10:55 10:55 WBC (4.4-10.8) 10^3/uL 11.09 H RBC (4.36-5.78) 10^6/uL 5.16 Hgb (13.5-17.5) g/dL 13.8 Hct (40.0-50.0) % 42.9 MCV (80-95) fL 83 MCH (27.0-33.0) pg 26.7 L MCHC (32.0-36.0) % 32.2 RDW (11.8-14.1) % 12.6 Plt Count (130-400) 10^3/uL 352 MPV (8.0-11.0) fL 10.2 Immature Gran % 0.6 Neutrophils % 53.1 Lymphocytes % 32.6 Monocytes % 10.6 Eosinophils % 1.8 Basophils % 1.3 Nucleated RBC % (0.0-0.3) % 0.0 Absolute Neutrophils (1.2-6.7) 10^3/uL 5.89 Absolute Lymphocytes (1.2-3.4) 10^3/uL 3.62 H Absolute Monocytes (0.1-0.8) 10^3/uL 1.18 H Absolute Eosinophils (0.0-0.7) 10^3/uL 0.20 Absolute Basophils (0.0-0.2) 10^3/uL 0.14 Sodium (136-145) mmol/L 140 Potassium (3.5-5.1) mmol/L 3.6 Chloride (98-107) mmol/L 103 Carbon Dioxide (21.0-32.0) mmol/L 27.0 Anion Gap (3-11) mmol/L 10.0 BUN (7-18) mg/dL 11 Creatinine (0.70-1.30) mg/dL 1.3 Estimated GFR/1.73 m2 (mL/min/1.73m2) 58.43 Glucose (74-106) mg/dL 204 H Calcium (8.5-10.1) mg/dL 9.2 Magnesium (1.8-2.4) mg/dL 1.9 Total Bilirubin (0.2-1.0) mg/dL 0.7 AST (15-37) U/L 68 H ALT (16-63) U/L 101 H Alkaline Phosphatase (46-116) U/L 117 H Troponin I (<or=60) ng/L < 50 Total Protein (6.4-8.2) g/dL 8.2 Albumin (3.4-5.0) g/dL 3.9 ECG Data Attestation: I personally reviewed and interpreted this ECG (s) as follows: Interpretation: #1 -- rate of 71, sinus, inferior STEMI noted with [address] elevation in lead III, [address] elevation in 2 and aVF with reciprocal depressions in 1, aVL and V2. #2 -- rate of 70, sinus, inferior STEMI noted with [address] elevation in lead III, [address] elevation in 2 and aVF with more pronounced reciprocal depressions in 1 and aVL. HPI General Mode of arrival: ambulatory. Date/Time Provider Initiated Documentation: 06/09/21 10:40. Limitations to Documentation: no limitations. Information obtained by: patient. HPI Narrative: Patient is a 50-year-old male with a history of obesity, diabetes, hyperlipidemia who presents with substernal chest heaviness that started 90 minutes ago after lifting a heavy air compressor in his garage which weighed approximately 300 pounds. Patient states the pain is substernal and currently 7/10. He admits to occasional shortness of breath. He denies any radiation of pain. He states he has not taken any medication for pain. Related Data Home Medications Medication Instructions Recorded Confirmed ibuprofen 200 mg tablet 600 mg PO PRN PRN tab 08/10/19 09/14/20 potassium citrate 10 mEq (1,080 10 meq PO BID #180 tab 01/12/20 09/14/20 mg) tablet,extended release atorvastatin 40 mg tablet (Lipitor) 40 mg PO DAILY #90 tab-cap 09/14/20 09/14/20 levothyroxine 75 mcg tablet 75 mcg PO DAILY #90 tab-cap 09/14/20 09/14/20 metformin 500 mg tablet 500 mg PO BID #180 tab 09/14/20 09/14/20 sertraline 100 mg tablet (Zoloft) 100 mg PO DAILY #90 tab-cap 09/14/20 09/14/20 Previous Rx's Medication Instructions Recorded potassium citrate 10 mEq (1,080 10 meq PO BID #180 tab 01/12/20 mg) tablet,extended release atorvastatin 40 mg tablet (Lipitor) 40 mg PO DAILY #90 tab-cap 09/14/20 levothyroxine 75 mcg tablet 75 mcg PO DAILY #90 tab-cap 09/14/20 metformin 500 mg tablet 500 mg PO BID #180 tab 09/14/20 sertraline 100 mg tablet (Zoloft) 100 mg PO DAILY #90 tab-cap 09/14/20 Allergies Allergy/AdvReac Type Severity Reaction Status Date / Time morphine AdvReac vomit Verified 09/14/20 13:07 General Stated Complaint: Chest Pain SUDHIR: 2 Review of Systems All systems reviewed & are unremarkable except as noted in HPI and below Constitutional Constitutional: Denies chills, Denies excessive sweating, Denies fatigue, Denies fever(s), Denies weakness and Denies weight loss Eyes Eyes: Reports system reviewed and no additional complaints, except as documented and Denies blurry vision ENT Ears, Nose, Mouth, and Throat: Denies vertigo, Denies dizziness, Denies otalgia, Denies nasal congestion, Denies sore throat and Denies throat swelling Cardiovascular Cardiovascular: Reports chest pain, Denies syncope, Denies rapid heart rate and Denies dyspnea Respiratory Respiratory: Denies chest congestion, Denies cough, Denies pain on inspiration and Denies dyspnea Gastrointestinal Gastrointestinal: Denies abdominal pain, Denies diarrhea and Denies vomiting Genitourinary Genitourinary: Denies hematuria, Denies dysuria and Denies flank pain Musculoskeletal Musculoskeletal: Denies back pain and Denies joint swelling Integumentary/Breasts Skin/Breast: Denies lesions and Denies rash Neurologic Neurologic: Denies behavioral changes, Denies confusion, Denies vertigo, Denies dizziness, Denies syncope, Denies localized weakness and Denies weakness Psychiatric Psychiatric: Denies behavioral changes, Denies confusion and Denies depression Endocrine Endocrine: Denies excessive sweating and Denies fatigue Hematologic/Lymphatic Hematologic/Lymphatic: Denies easy bruising and Denies lymphadenopathy Allergic/Immunologic Allergic/Immunologic: Denies throat swelling PFSH All Active Problems (Updated 06/09/21 @ 11:46 by Aissatou Mas DO) STEMI (ST elevation myocardial infarction) (Acute) Annual physical exam (Acute 01/24/15) Hypothyroid (Chronic) Degeneration of cervical intervertebral disc (Chronic 01/08/11) C-5 Depressive disorder (Chronic 01/08/11) Diabetes mellitus (Chronic) Hypercholesterolemia (Chronic 11/20/09) Increased body mass index (Chronic) Kidney stone (Chronic 01/08/11) Medical History (Updated 06/09/21 @ 11:46 by Aissatou Mas DO) Abnormal finding on thyroid function test (07/26/14) Benign neoplasm of skin of arm 01/08/11 left irritated palm lesion Benign neoplasm of skin of arm (01/08/11) Chronic sinusitis, unspecified (04/18/14) Depression Elev transaminase/LDH 11/20/09 Elevation of level of transaminase and lactic acid dehydrogenase (LDH) (11/20/09) Hypercholesteremia Muscle spasm (07/22/12) Nondisplaced fracture of lateral malleolus of left fibula, initial encounter for closed fracture (11/03/14) Sinusitis 04/18/14 Sinusitis (04/18/14) Spasm of muscle 07/22/12 Surgical History (Updated 12/31/18 @ 11:57 by Sandy Campos MD, [place]) Arthroplasty of knee Right, by Dr. Redman.HE H/O arthroscopy of knee right History of arthroscopy of knee Family History Mother Personal history of malignant neoplasm ENDOMETRIAL Father Personal history of malignant neoplasm TESTICULAR Heart disease 9 [place] Hyperlipidemia Sister Personal history of malignant neoplasm BREAST Brother No problems noted. Grandfather No problems noted. Grandfather No problems noted. Grandmother No problems noted. Grandmother Heart disease Social History Smoking/Tobacco Use Status: Never Smoking risk assessment performed?: Yes Alcohol Intake: never Drug use: Never Substance use type: does not use Do you feel safe at home: Yes Do you feel safe in your relationship?: Yes Exam Const General: cooperative and other (ashen) Nutritional Appearance: obese Orientation: alert, awake and oriented x3 HENMT Head: normal to inspection Ears: hearing grossly normal bilaterally, external ears normal and TM's normal bilaterally General nose exam: external nose normal Face and sinus: normal facial exam Mouth: oral mucosae normal Teeth and gingiva: dentition normal Throat: posterior oropharynx normal Eyes General: appearance normal, both eyes and all related structures Eyelids: eyelids normal Pupils: PERRL EOM: EOM intact bilaterally Neck Neck: normal visual inspection Lymphatic: no lymphadenopathy noted Chest Chest: normal inspection of the chest Resp Effort & Inspection: normal respiratory effort and able to speak in complete sentences Auscultation: clear to auscultation bilaterally Cardio Rate: regular rate Rhythm: regular rhythm GI Inspection: normal to inspection Palpation: soft, not firm, no guarding, no hepatosplenomegaly, no masses and nontender Auscultation: normal bowel sounds Back/Spine/Pelvis Back: no CVA tenderness Skin General skin exam: no rashes or lesions noted Neuro General: patient alert and patient awake Cognition: normal cognition Speech: speech normal Gait: normal gait Motor: muscle tone normal throughout Sensory Exam: no sensory deficits noted Extrem General: normal to inspection, full ROM, capillary refill normal and no edema Psych Appearance: grossly normal Mental Status: mental status grossly normal Speech and Movement: speech and movement normal Affect: normal affect Thought Process: normal Course Vital Signs Vital signs: Vital Signs Temperature 97.9 F 06/09/21 10:42 Pulse 79 06/09/21 10:42 Respiratory Rate 17 06/09/21 10:42 Blood Pressure 128/86 06/09/21 10:42 Pulse Oximetry 98 06/09/21 10:42 Temperature 97.9 F 06/09/21 10:42 Pulse 79 06/09/21 10:42 Respiratory Rate 17 06/09/21 10:42 Blood Pressure 128/86 06/09/21 10:42 Blood Pressure Position Supine 06/09/21 10:42 Pulse Oximetry 98 06/09/21 10:42 Oxygen Delivery Method Room Air 06/09/21 10:42 Oxygen Flow Rate 0 06/09/21 10:42 Pain Level 7 06/09/21 10:42 Critical Care Time Critical Care Time Critical Care Time: Yes Total Critical Care Time: 80 Attestation: I spent 80 minutes of critical care time with this patient. This does not include time spent on separately reported billable procedures.
[2021-06-09] MEDS: Normal Saline 1,000 ML 1000 ML IV (11:00)
[2021-06-09] MEDS: Aspirin 325 MG TAB PO (11:00)
[2021-06-09] MEDS: Clopidogrel 300 MG TAB PO ×2 (11:00→11:43)
--- NOTE | 2021-06-09 11:00 | DI.CT_ITS ---
Exam(s) CT THORAX CTA EXAM: CT THORAX CTA CLINICAL HISTORY: chest pain, r/o dissection. TECHNIQUE: Imaging Protocol: Axial CT angiography was performed with multi-slice acquisition and mu lti-planar reconstructions as well as axial, coronal and sagittal MIP reconstructions. CONTRAST MATERIAL: Intravenous: Omnipaque 350 Contrast volume:100 ml COMPARISON: CT CT RENAL COLIC WO from 01/19/2020 CR,XR XR PORTABLE CHEST AP from 06/09/2021 FINDINGS: Pulmonary Arteries: Contrast bolus optimized for aorta. No gross evidence of filling defect to sugge st pulmonary emboli. Tracheobronchial tree: Patent where visualized. Mediastinum and Taylor: No dominant adenopathy or fluid collection. Pulmonary parenchyma: No consolidation or dominant measurable mass. Pleura: No effusion or pneumothorax. Heart: The heart is not dilated. Mild coronary artery calcifications are seen. Aorta: Thoracic aorta non-dilated. No aneurysm. No dissection. Minimal calcification. Upper abdomen: Unremarkable. Bones: Degenerative disc changes. IMPRESSION: No evidence of aortic dissection or other acute abnormality.. RADIATION DOSE DELIVERED: 877.5mGy.cm Total DLP DATA REPOSITORY: All CT scans at this facility are submitted to the National Radiology Data Registry (NRDR) Dose Index Registry (DIR) with the [employer] (A[employer]). RADIATION OPTIMIZATION: All CT scans at this facility use at least one of these dose optimization te chniques: automated exposure control; mA and/or kV adjustment per patient size (includes targeted exa ms where dose is matched to clinical indication); or iterative reconstruction.
[2021-06-09 11:02] LABS: Abs Immature Grans 0.07 10^3/uL (0.0-0.06); Absolute Basophil Count 0.14 10^3/uL (0.0-0.2); Basophils % 1.3; Eosinophils % 1.8; HCT 42.9 % (40.0-50.0); HGB 13.8 g/dL (13.5-17.5); Immature Grans % 0.6; Lymphocytes % 32.6; MCH 26.7 pg (27.0-33.0); MCHC 32.2 % (32.0-36.0); MCV 83 fL (80-95); MPV 10.2 fL (8.0-11.0); Monocytes % 10.6; Neutrophils % 53.1; Platelet Count 352 10^3/uL (130-400); RBC 5.16 10^6/uL (4.36-5.78); RDW 12.6 % (11.8-14.1); RDW-SD 38.4 fL; WBC 11.09 10^3/uL (4.4-10.8)
[2021-06-09] MEDS: HYDROmorphone 2 MG/ML VIAL 0.5 MG IVP ×2 (11:02→11:25)
[2021-06-09 11:03] LABS: Absolute Lymphocyte Count 3.62 10^3/uL (1.2-3.4); Absolute Monocyte Count 1.18 10^3/uL (0.1-0.8); Absolute Neutrophil Count 5.89 10^3/uL (1.2-6.7)
--- NOTE | 2021-06-09 11:06 | DI.VRAD_ITS ---
PROCEDURE INFORMATION: Exam: XR Chest Exam date and time: 06/09/2021 10:48 AM Age: 50 years old Clinical indication: Pain; Chest pressure TECHNIQUE: Imaging protocol: XR of the chest. Views: 1 view. COMPARISON: CR CHEST 2 VIEWS PA,LAT 03/30/2017 10:34 PM FINDINGS: Lungs: Opacity in the left base may represent atelectasis or pneumonia.. Pleural spaces: Unremarkable. No pleural effusion. No pneumothorax. Heart/Mediastinum: Cardiomegaly Bones/joints: Unremarkable. IMPRESSION: Opacity in the left base may represent atelectasis or pneumonia.. Dictated and Authenticated by: Milagros Cloe MD. Ordering:KARY Reyez MD
[2021-06-09 11:19] LABS: ALT 101 U/L (16-63); AST 68 U/L (15-37); Albumin 3.9 g/dL (3.4-5.0); Alkaline Phosphatase 117 U/L (46-116); BUN 11 mg/dL (7-18); Bilirubin, Total 0.7 mg/dL (0.2-1.0); CREATININE 1.3 mg/dL (0.70-1.30); Calcium 9.2 mg/dL (8.5-10.1); Chloride 103 mmol/L (98-107); Estimated GFR 58.43 (mL/min/1.73m2); Glucose 204 mg/dL (74-106); Magnesium 1.9 mg/dL (1.8-2.4); Potassium 3.6 mmol/L (3.5-5.1); Sodium 140 mmol/L (136-145); Total Protein 8.2 g/dL (6.4-8.2); Troponin I < 50 ng/L (<or=60)
[2021-06-09] MEDS: Omnipaque 350 MG/ML 100 ML BTL IJ (11:21)
--- NOTE | 2021-06-09 11:30 | RT.EKG_ITS ---
APPROVED REPORT Exam: Resting ECG Reason for Exam: chest pain Patient Location: E HR:70 bpm ECG Measurements Heart Rate 70 AXIS TX 173 P 18 QRSd 101 QRS 81 QT 400 T 102 QTc 432 Conclusion Sinus rhythm...normal P axis, V-rate 60- 99 Inferior infarct, acute...ST>0.10mV, T upright, II III aVF. +++ STEMI+++. 2mm ST elevations in III. 1mm ST elevations in II and aVF. 1mm ST depressions in I and aVL. I have reviewed and interpreted ECG and agree with software generated interpretation.
--- NOTE | 2021-06-09 11:39 | DI.VRAD_ITS ---
PROCEDURE INFORMATION: Exam: CTA Chest With Contrast Exam date and time: 06/09/2021 11:08 AM Age: 50 years old Clinical indication: Sternal or substernal pain TECHNIQUE: Imaging protocol: Computed tomographic angiography of the chest with contrast. 3D rendering (Not supervised by radiologist): MIP and/or 3D reconstructed images were created by the technologist. Contrast material: OMNIPAQUE 350; Contrast volume: 100 ml; Contrast route: INTRAVENOUS (IV); COMPARISON: XR PORTABLE CHEST AP 06/09/2021 10:48 AM FINDINGS: Pulmonary arteries: No evidence of pulmonary embolus to the segmental level. Aorta: No aneurysm of the aorta. No dissection of the aorta. Lungs: Unremarkable. No consolidation. No masses. Pleural spaces: Unremarkable. No pneumothorax. No pleural effusion. Heart: Unremarkable. No cardiomegaly. No pericardial effusion. Lymph nodes: Unremarkable. No enlarged lymph nodes. Bones/joints: Unremarkable. No acute fracture. Soft tissues: Unremarkable. IMPRESSION: 1. No evidence of pulmonary embolus to the segmental level. 2. No aneurysm of the aorta. 3. No dissection of the aorta. Dictated and Authenticated by: Milagros Cole MD. Ordering:KARY Reyez MD
[2021-06-09 11:48] LABS: INR 1.1 (0.9-1.1); PTT Activated 22.3 sec (21.0-27.5); Prothrombin Time 10.9 sec (9.3-11.0)
[2021-06-09] MEDS: Normal Saline 1,000 ML 150 ML IV (11:50)
[2021-06-09] MEDS: Potassium Chloride 20 MEQ TABCR 40 MEQ PO (12:10)
[2021-06-09] MEDS: Tenecteplase 50 MG KIT IVP (12:11)
--- NOTE | 2021-06-09 12:29 | NUR.NOTE ---
Nursing Note: Supplied DART with 1 bottle of nitro from drip and ship kit. 1 sublingual tab given per DART in patient room
== END 2021-06-09 12:16 | disposition short-term general hospital (02) ==
PROVIDERS: Emergency Provider Physician Assistant; PCP Family Medicine
DX: I21.3 ST elevation (STEMI) myocardial infarction of unspecified site (principal); R07.9 Chest pain, unspecified
CPT/HCPCS: 36415; 71275; 80053; 93005; 96361; 96365; 96375; 96376; 99291; 99292; 71045; 83735; 84484; 85025; 85610; 85730; 93010; J3101; J3490

== ENCOUNTER 2021-07-04 08:00 | Outpatient (RCR) | payer BC, SELFPAY | END 2021-07-10 23:59 | disposition home or self-care (01) | LOC: CR 08:00 | PROVIDERS: PCP Family Medicine; Visit Provider Internal Medicine Cardiovascular Disease | DX: Z51.89 Encounter for other specified aftercare (principal); I25.2 Old myocardial infarction; Z95.5 Presence of coronary angioplasty implant and graft | CPT/HCPCS: S9472 ==

== ENCOUNTER 2021-08-06 08:00 | Outpatient (RCR) | payer BC, SELFPAY | END 2021-08-09 23:59 | disposition home or self-care (01) | LOC: CR 08:00 | PROVIDERS: PCP Family Medicine; Visit Provider Internal Medicine Cardiovascular Disease | DX: Z51.89 Encounter for other specified aftercare (principal); I25.2 Old myocardial infarction; Z95.5 Presence of coronary angioplasty implant and graft | CPT/HCPCS: S9472 ==

== ENCOUNTER 2021-09-07 08:06 | Outpatient (RCR) | payer BC, SELFPAY | END 2021-09-09 23:59 | disposition home or self-care (01) | LOC: CR 08:06 | PROVIDERS: PCP Family Medicine; Referring Provider Internal Medicine Cardiovascular Disease; Visit Provider Internal Medicine Cardiovascular Disease | DX: Z51.89 Encounter for other specified aftercare (principal); I25.2 Old myocardial infarction; Z95.5 Presence of coronary angioplasty implant and graft | CPT/HCPCS: S9472 ==

== ENCOUNTER 2021-09-17 03:49 | Outpatient (CLI) | payer BC, SELFPAY ==
[2021-09-17 08:32] LABS: COMMENT (LAB VIEW ONLY) 195.69 mg/dL; Microalb ug/mg Crea 2.8 ug/mg Cr
[2021-09-17 08:35] LABS: ALT 30 U/L (16-63); AST 35 U/L (15-37); Albumin 3.8 g/dL (3.4-5.0); Alkaline Phosphatase 79 U/L (46-116); Anion Gap 4.3 mmol/L (3-11); BUN 14 mg/dL (7-18); Bilirubin, Total 0.8 mg/dL (0.2-1.0); CO2 31.7 mmol/L (21.0-32.0); CREATININE 0.8 mg/dL (0.70-1.30); Calcium 9.1 mg/dL (8.5-10.1); Calculated LDL 31 mg/dL (<100); Chloride 104 mmol/L (98-107); Cholesterol 83 mg/dL (<200); Glucose 105 mg/dL (74-106); HDL Cholesterol 39 mg/dL (40-60); Potassium 4.2 mmol/L (3.5-5.1); Sodium 140 mmol/L (136-145); TSH (W/Ref FT4) 1.33 uIU/mL (0.36-3.74); Total Protein 7.6 g/dL (6.4-8.2); Triglyceride 67 mg/dL (<150)
[2021-09-17 08:50] LABS: Hemoglobin A1C 5.6 % (<5.7)
== END 2021-09-17 03:50 | disposition home or self-care (01) ==
LOC: LBO 03:49
PROVIDERS: PCP Family Medicine; Visit Provider Family Medicine
DX: E03.9 Hypothyroidism, unspecified (principal); E11.9 Type 2 diabetes mellitus without complications; E78.00 Pure hypercholesterolemia, unspecified; I25.10 Atherosclerotic heart disease of native coronary artery without angina pectoris
CPT/HCPCS: 36415; 80053; 80061; 82043; 82570; 83036; 84443

== ENCOUNTER 2021-10-10 08:00 | Outpatient (RCR) | payer BC, SELFPAY | END 2021-10-10 23:59 | disposition home or self-care (01) | LOC: CR 08:00 | PROVIDERS: PCP Family Medicine; Referring Provider Internal Medicine Cardiovascular Disease; Visit Provider Internal Medicine Cardiovascular Disease | DX: Z51.89 Encounter for other specified aftercare (principal); I25.2 Old myocardial infarction; Z95.5 Presence of coronary angioplasty implant and graft | CPT/HCPCS: S9472 ==

== ENCOUNTER 2021-10-17 08:00 | Outpatient (RCR) | payer BC, SELFPAY | END 2021-11-09 23:59 | disposition home or self-care (01) | LOC: CR 08:00 | PROVIDERS: PCP Family Medicine; Referring Provider Internal Medicine Cardiovascular Disease; Visit Provider Internal Medicine Cardiovascular Disease | DX: Z51.89 Encounter for other specified aftercare (principal); I25.2 Old myocardial infarction; Z95.5 Presence of coronary angioplasty implant and graft | CPT/HCPCS: S9472 ==

== ENCOUNTER 2022-02-22 01:13 | Outpatient (CLI) | payer BC, SELFPAY ==
[2022-02-22 12:40] LABS: ALT 25 U/L (16-63); AST 24 U/L (15-37); Alkaline Phosphatase 92 U/L (46-116); Anion Gap 6.2 mmol/L (3-11); BUN 19 mg/dL (7-18); Bilirubin, Total 0.7 mg/dL (0.2-1.0); CO2 29.8 mmol/L (21.0-32.0); CREATININE 1.1 mg/dL (0.70-1.30); Calcium 9.7 mg/dL (8.5-10.1); Calculated LDL 26 mg/dL (<100); Chloride 104 mmol/L (98-107); Cholesterol 89 mg/dL (<200); Estimated GFR 81.28 (mL/min/1.73m2); Glucose 92 mg/dL (74-106); HDL Cholesterol 47 mg/dL (40-60); Potassium 4.3 mmol/L (3.5-5.1); Sodium 140 mmol/L (136-145); TSH (W/Ref FT4) 2.53 uIU/mL (0.36-3.74); Total Protein 7.7 g/dL (6.4-8.2); Triglyceride 83 mg/dL (<150)
[2022-02-22 12:50] LABS: COMMENT (LAB VIEW ONLY) 272.59 mg/dL; Microalb ug/mg Crea 3.8 ug/mg Cr
[2022-02-22 23:10] LABS: Estimated Average Glucose 105 mg/dL; Hemoglobin A1C 5.3 % (<5.7)
== END 2022-02-22 01:14 | disposition home or self-care (01) ==
LOC: LOS 01:13
PROVIDERS: PCP Family Medicine; Visit Provider Family Medicine
DX: G47.33 Obstructive sleep apnea (adult) (pediatric) (principal); I25.10 Atherosclerotic heart disease of native coronary artery without angina pectoris; E11.9 Type 2 diabetes mellitus without complications
CPT/HCPCS: 36415; 80053; 80061; 82043; 82570; 83036; 84443

== ENCOUNTER 2022-12-01 08:07 | Emergency (ER) | payer BC, SELFPAY ==
[2022-12-01 08:11] VITALS: BP 124/71; PULSE 79; RESP 16; TEMP 36.5; O2SAT 97
--- NOTE | 2022-12-01 08:30 | DI.RAD_ITS ---
Exam(s) XR HIP LT COMPLETE AP PELVIS EXAM: XR HIP LT COMPLETE AP PELVIS CLINICAL HISTORY: hip pain. TECHNIQUE: 2D digital imaging was performed. COMPARISON: No exams were available for comparison FINDINGS: 3 views No evidence of pelvic nor hip fractures. There are some degenerative changes in the right hip noted. Left hip unremarkable. SI joints unremarkable. IMPRESSION: No fractures. Mild degenerative changes right hip. DATA REPOSITORY: RADIATION DOSE DELIVERED:
[2022-12-01] MEDS: Lidocaine 5% Patch 1 PATCH TP (08:43)
[2022-12-01] MEDS: Diclofenac 1% Gel 100 GM TUBE TP (08:43)
[2022-12-01] MEDS: Methocarbamol 500 MG TAB PO (08:44)
--- NOTE | 2022-12-01 09:07 | ED.GENADUL_ITS ---
Discharge Plan Disposition Patient Disposition: Home Discharge Details Clinical Impression: Acute pain of left hip Primary Care Provider: Sandy Campos ED Provider: Fili Murray Home Meds and New Rx's Prescriptions: No Action nitroglycerin 0.4 mg tablet, sublingual 0.4 mg sublingual Q5M PRN (Reason: chest pain) Qty: 90 12RF Rx Instructions: do not exceed 3 doses per episode 1 Tab by mouth every 5 minutes PRN clopidogrel 75 mg tablet 75 mg PO DAILY Qty: 90 6RF (DME) FreeStyle Arsen 2 Sensor Kit See Rx Instructions .Route Qty: 6 8RF Rx Instructions: As directed. E11.9 sertraline [Zoloft] 100 mg tablet 100 mg PO DAILY Qty: 90 6RF levothyroxine 75 mcg tablet 75 mcg PO DAILY Qty: 90 4RF atorvastatin 80 mg tablet 80 mg PO QHS Qty: 90 3RF Rx Instructions: One tab by mouth nightly (DME) FreeStyle Arsen 2 Sensor Kit See Rx Instructions .Route Qty: 6 3RF Rx Instructions: As directed Ell.9 losartan 25 mg tablet 25 mg PO DAILY Discharge Instructions Instructions: Leg Pain (ED) Additional Instructions: Please continue to use the provided pain cream 2-3 times daily as needed for discomfort. Please apply to areas of pain. You may also use [id number] acetaminophen as directed on packaging. If you have any new or significant worsening of symptoms including fever chills, extreme inability to use lower extremity or further concerns feel free to return the emergency department for reassessment otherwise follow-up with primary care provider if not improving in the next week. You have been given a limited supply of narcotics and use these only for severe pain that is not controlled with other medications. Referrals: Sandy Campos MD, [place] [Primary Care Provider] - 1 week Medical Decision Making Patient presenting to the emergency department for chief complaint of left hip pain. Patient reports all day yesterday he was riding on a tractor and later last night he started having significant left hip pain radiating into his thigh causing some muscle weakness. Patient denies any known injury or trauma, denies any history of similar events. Patient has significant past medical history of recent heart attack, low thyroid, and kidney stones. Physical exam is overall unremarkable with no specific reproducible pain even with passive range of motion. Differential diagnosis to include atypical radiculopathy with radiating pain into hip versus arthritic joint. Symptoms not consistent with septic joint, acute Lyme disease, severe radiculopathy. Patient does state that occasionally he feels crepitus in his left hip but this is intermittent. We will plan on performing radiological imaging of the left hip and pelvis. Pending results will give diclofenac gel, Robaxin, and lidocaine patch. Review of radiological imaging shows no acute findings noted. Patient reassessed and did state slight improvement of discomfort but still having moderate amount of pain. Discussed management of symptoms with patient and did give patient limited prescription for narcotic to use for severe pain only. Otherwise patient to follow-up with primary care provider if not improving or as needed for reassessment. After discussion of diagnosis and plan of care patient has no further needs, questions, or concerns and states clear understanding to return to the emergency department for any worsening symptoms. This documentation was generated using [employer] dictation system, please disregard any oddities of phrase or misspellings. Imaging Data Radiologic Study: Imaging: X-Ray Radiologist's impression: Exam(s) PROCEDURE INFORMATION: Exam: XR Left Hip Exam date and time: 12/01/2022 9:00 AM Age: 52 years old Clinical indication: Hip pain; Left hip TECHNIQUE: Imaging protocol: Radiologic exam of the left hip. Views: 2 or 3 views hip with pelvis when performed. COMPARISON: No relevant prior studies are available for comparison. FINDINGS: Bones/joints: No fracture seen. Soft tissues: Pelvic phleboliths. IMPRESSION: No fracture seen. HPI General Mode of arrival: ambulatory . Date/Time Provider Initiated Documentation: 12/01/22 08:20 . Limitations to Documentation: no limitations . Information obtained by: patient and RN notes reviewed . History of Present Illness 52 year old M presents to the emergency department with the chief complaint of Left hip pain, described as moderate and severe, Quality is described as sharp, and is localized to the left and lower extremity. Patient distal. Patient started experiencing this day(s) (1) and it has been constant. Immobilization improves symptom(s), Movement worsens symptoms . Patient notes no other symptoms.. Patient did receive the following treatments prior to arrival, other (Acetaminophen) Related Data Home Medications Medication Instructions Recorded Confirmed nitroglycerin 0.4 mg sublingual 0.4 mg sublingual Q5M PRN chest 06/21/21 12/01/22 tablet pain #90 tabs flash glucose sensor (FreeStyle #6 ea 06/26/21 02/25/22 Arsen 2 Sensor kit) sertraline 100 mg tablet (Zoloft) 100 mg PO DAILY #90 tab-caps 12/10/21 12/01/22 clopidogrel 75 mg tablet 75 mg PO DAILY #90 tabs 02/25/22 12/01/22 levothyroxine 75 mcg tablet 75 mcg PO DAILY #90 tab-caps 03/26/22 12/01/22 atorvastatin 80 mg tablet 80 mg PO QHS #90 tab-caps 08/21/22 12/01/22 flash glucose sensor (FreeStyle #6 ea 08/21/22 Arsen 2 Sensor kit) losartan 25 mg tablet 25 mg PO DAILY 12/01/22 12/01/22 Previous Rx's Medication Instructions Recorded nitroglycerin 0.4 mg sublingual 0.4 mg sublingual Q5M PRN chest 06/21/21 tablet pain #90 tabs flash glucose sensor (FreeStyle #6 ea 06/26/21 Arsen 2 Sensor kit) sertraline 100 mg tablet (Zoloft) 100 mg PO DAILY #90 tab-caps 12/10/21 clopidogrel 75 mg tablet 75 mg PO DAILY #90 tabs 02/25/22 levothyroxine 75 mcg tablet 75 mcg PO DAILY #90 tab-caps 03/26/22 atorvastatin 80 mg tablet 80 mg PO QHS #90 tab-caps 08/21/22 flash glucose sensor (FreeStyle #6 ea 08/21/22 Arsen 2 Sensor kit) Allergies Allergy/AdvReac Type Severity Reaction Status Date / Time morphine AdvReac vomit Verified 02/25/22 09:01 General Stated Complaint: Orthopedic SUDHIR: 4 Review of Systems Constitutional Constitutional: Denies chills and Denies fever(s) Cardiovascular Cardiovascular: Denies chest pain Musculoskeletal Musculoskeletal: Reports as per HPI, Denies back pain, Reports arthralgias, Reports muscle weakness, Denies numbness and Denies tingling Integumentary/Breasts Skin/Breast: Denies rash Neurologic Neurologic: Denies numbness and Denies tingling PFSH All Active Problems (Updated 12/01/22 @ 09:58 by Fili Murray NP) Acute pain of left hip (Acute) JON (obstructive sleep apnea) (Chronic) mod to severe CAD (coronary artery disease) (Chronic) Annual physical exam (Acute 01/24/15) Hypothyroid (Chronic) Degeneration of cervical intervertebral disc (Chronic 01/08/11) C-5 Depressive disorder (Chronic 01/08/11) Diabetes mellitus (Chronic) Hypercholesterolemia (Chronic 11/20/09) Increased body mass index (Chronic) Kidney stone (Chronic 01/08/11) Medical History Abnormal finding on thyroid function test (07/26/14) Benign neoplasm of skin of arm (01/08/11) Elevation of level of transaminase and lactic acid dehydrogenase (LDH) (11/20/09) Muscle spasm (07/22/12) Sinusitis (04/18/14) Elev transaminase/LDH 11/20/09 Benign neoplasm of skin of arm 01/08/11 left irritated palm lesion Spasm of muscle 07/22/12 Sinusitis 04/18/14 Nondisplaced fracture of lateral malleolus of left fibula, initial encounter for closed fracture (11/03/14) Chronic sinusitis, unspecified (04/18/14) Hypercholesteremia Depression Surgical History History of arthroscopy of knee H/O arthroscopy of knee right Arthroplasty of knee Right, by Dr. Redman.HE Family History Mother Personal history of malignant neoplasm ENDOMETRIAL Father Personal history of malignant neoplasm TESTICULAR Heart disease 9 BYPASS Hyperlipidemia Sister Personal history of malignant neoplasm BREAST Brother No problems noted. Grandfather No problems noted. Grandfather No problems noted. Grandmother No problems noted. Grandmother Heart disease Social History Smoking/Tobacco Use Status: Never Second Hand Exposure: Yes Smoking risk assessment performed?: Yes Alcohol Intake: never Drug use: Never Substance use type: does not use Housing: house Do you feel safe at home: Yes Do you feel safe in your relationship?: Yes Exam Const General: cooperative, no acute distress and not ill appearing Orientation: alert, awake and oriented x3 HENMT Mouth: moist mucous membranes Resp Effort & Inspection: normal respiratory effort, able to speak in complete sentences and no respiratory distress Cardio Rate: regular rate Rhythm: regular rhythm Pulses: normal peripheral pulses Back/Spine/Pelvis Thoracic/Lumbar Spine: No paraspinal tenderness, No thoracic spinal tenderness, No lumbar spinal tenderness and No straight leg raise positive Pelvis: no pain with anterior-posterior compression, no pain with lateral compression and no buttock tenderness Skin General skin exam: no rashes or lesions noted Neuro General: patient alert, patient awake, patient oriented x3, moves all extremities and no focal motor deficits Sensory Exam: no sensory deficits noted Extrem Left lower extremity: hip/thigh Details: normal to inspection and normal ROM; no tenderness, no swelling, no ecchymosis and no crepitus Course Vital Signs Vital signs: Vital Signs Temperature 36.5 C 12/01/22 08:11 Pulse 79 12/01/22 08:11 Respiratory Rate 16 12/01/22 08:11 Blood Pressure 124/71 12/01/22 08:11 Pulse Oximetry 97 12/01/22 08:11 Temperature 36.5 C 12/01/22 08:11 Temperature Source Tympanic 12/01/22 08:11 Pulse 79 12/01/22 08:11 Respiratory Rate 16 12/01/22 08:11 Respiratory Effort Normal, Non-Labored 12/01/22 08:15 Blood Pressure 124/71 12/01/22 08:11 Blood Pressure Position Supine 12/01/22 08:11 Pulse Oximetry 97 12/01/22 08:11 Oxygen Delivery Method Room Air 12/01/22 08:11 Oxygen Flow Rate 0 12/01/22 08:11 Pain Level 9 12/01/22 08:15
--- NOTE | 2022-12-01 09:13 | DI.VRAD_ITS ---
PROCEDURE INFORMATION: Exam: XR Left Hip Exam date and time: 12/01/2022 9:00 AM Age: 52 years old Clinical indication: Hip pain; Left hip TECHNIQUE: Imaging protocol: Radiologic exam of the left hip. Views: 2 or 3 views hip with pelvis when performed. COMPARISON: No relevant prior studies are available for comparison. FINDINGS: Bones/joints: No fracture seen. Soft tissues: Pelvic phleboliths. IMPRESSION: No fracture seen. Dictated and Authenticated by: Bernadette Pack MD. Ordering:SHANNON Penn MD
[2022-12-01] MEDS: methylPREDNISolone ACETATE 80 MG/ML VIAL IM (10:16)
== END 2022-12-01 11:11 | disposition home or self-care (01) ==
PROVIDERS: Emergency Provider Nurse Practitioner Family; PCP Family Medicine
DX: M25.552 Pain in left hip (principal); M16.12 Unilateral primary osteoarthritis, left hip; I25.10 Atherosclerotic heart disease of native coronary artery without angina pectoris; E11.9 Type 2 diabetes mellitus without complications; Z79.02 Long term (current) use of antithrombotics/antiplatelets; Z79.84 Long term (current) use of oral hypoglycemic drugs
CPT/HCPCS: 96372; 99283; 73502; J1040

== ENCOUNTER → 2022-12-05 08:27 | Outpatient (CLI) | payer BC, SELFPAY ==
--- NOTE | 2022-12-05 07:45 | DI.RAD_ITS ---
Exam(s) XR LUMBAR SPINE COMPLETE EXAM: XR LUMBAR SPINE COMPLETE CLINICAL HISTORY: severe acute lumbar radiculopathy, lumbar radicular pain, M54.16. TECHNIQUE: 2D digital imaging was performed. Five views. COMPARISON: CR LUMBAR SPINE COMPLETE from 03/27/2011 FINDINGS: BONES: No fracture or destructive lesion. Vertebral body heights are maintained. facet hypertrophy identified at L4-5.. DISKS: Moderate narrowing of the L4-5 disc space. The remaining intervertebral disc spaces are maint ained. ALIGNMENT: Lumbar spinal alignment is within normal limits. SOFT TISSUE: Normal. IMPRESSION: Moderate degenerative changes at the L4-5 level. DATA REPOSITORY: RADIATION DOSE DELIVERED:
== END ==
PROVIDERS: PCP Family Medicine; Visit Provider Family Medicine
DX: M54.16 Radiculopathy, lumbar region (principal)
CPT/HCPCS: 72110

== ENCOUNTER 2023-02-26 20:08 | Emergency (ER) | payer BC, SELFPAY ==
[2023-02-26 20:11] VITALS: BP 153/65; PULSE 92; RESP 20; TEMP 36.2; O2SAT 98
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
[2023-02-26] MEDS: Acetaminophen 500 MG TAB 1000 MG PO (20:31)
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
[2023-02-26 21:20] VITALS: BP 153/65; PULSE 92; RESP 20; O2SAT 98
== END 2023-02-26 21:35 | disposition home or self-care (01) ==
PROVIDERS: Emergency Provider Physician Assistant; PCP Family Medicine
DX: S20.212A Contusion of left front wall of thorax, initial encounter (principal); E11.9 Type 2 diabetes mellitus without complications; I25.10 Atherosclerotic heart disease of native coronary artery without angina pectoris; Z79.02 Long term (current) use of antithrombotics/antiplatelets; V86.02XA Driver of snowmobile injured in traffic accident, initial encounter; Y93.29 Activity, other involving ice and snow; Y92.838 Other recreation area as the place of occurrence of the external cause
CPT/HCPCS: 99283; 71046; 71100

== ENCOUNTER 2024-05-27 01:02 | Outpatient (CLI) | payer BC, SELFPAY ==
[2024-05-27 07:52] LABS: HCT 42.4 % (40.0-50.0); MCH 27.3 pg (27.0-33.0); MCV 83 fL (80-95); MPV 10.2 fL (8.0-11.0); Platelet Count 225 10^3/uL (130-400); RBC 5.12 10^6/uL (4.36-5.78); RDW-SD 38.8 fL; WBC 6.13 10^3/uL (4.4-10.8)
[2024-05-27 08:28] LABS: ALT 38 U/L (16-63); AST 21 U/L (15-37); Albumin 3.9 g/dL (3.4-5.0); Alkaline Phosphatase 128 U/L (46-116); Anion Gap 7.7 mmol/L (3-11); BUN 15 mg/dL (7-18); Bilirubin, Total 0.6 mg/dL (0.2-1.0); CO2 30.3 mmol/L (21.0-32.0); CREATININE 1.1 mg/dL (0.70-1.30); Calcium 9.6 mg/dL (8.5-10.1); Calculated LDL 25 mg/dL (<100); Chloride 104 mmol/L (98-107); Cholesterol 119 mg/dL (<200); Estimated GFR 80.27 (mL/min/1.73m2); Glucose 112 mg/dL (74-106); HDL Cholesterol 42 mg/dL (>or=40); Potassium 4.5 mmol/L (3.5-5.1); Sodium 142 mmol/L (136-145); TSH (W/Ref FT4) 2.66 uIU/mL (0.36-3.74); Total Protein 7.8 g/dL (6.4-8.2); Triglyceride 260 mg/dL (<150)
[2024-05-28 10:06] LABS: Hepatitis C Ab w Rflx HCV PCR Negative (Negative)
== END 2024-05-27 01:03 | disposition home or self-care (01) ==
PROVIDERS: PCP Family Medicine; Visit Provider Family Medicine
DX: E11.9 Type 2 diabetes mellitus without complications; I10 Essential (primary) hypertension; E03.9 Hypothyroidism, unspecified
CPT/HCPCS: 36415; 80053; 80061; 85027; 86803; 83036; 84443

== ENCOUNTER 2024-07-23 01:37 | Outpatient (CLI) | payer BC, SELFPAY ==
[2024-07-23 08:01] LABS: ESR 7 mm/hr (0-20)
[2024-07-23 08:40] LABS: COMMENT (LAB VIEW ONLY) 219.83 mg/dL; Microalb ug/mg Crea 4.2 ug/mg Cr
[2024-07-23 12:17] LABS: C-Reactive Protein 1.05 mg/dL (<or=0.5); Uric Acid 7.1 mg/dL (3.5-7.2)
[2024-07-23 18:18] LABS: Rheumatoid Factor <8.6 IU/mL (<12.0)
[2024-07-26 08:05] LABS: Lyme Ab w Rflx to Lyme Confirm Negative (Negative)
[2024-07-26 09:09] LABS: Cyclic Citrullinated Peptide <2.5 U/mL (<5.0)
[2024-07-26 12:32] LABS: ANA Interpretation Negative (Negative)
[2024-07-26 21:57] LABS: Anaplasma phagocytophilum Negative (Negative); B. miyamotoi PCR Negative (Negative); Babesia divergens/MO-1 Negative (Negative); Babesia duncani Negative (Negative); Babesia microti Negative (Negative); Ehrlichia chaffeensis Negative (Negative); Ehrlichia ewingii/canis Negative (Negative); Ehrlichia muris eauclairensis Negative (Negative)
== END 2024-07-23 01:38 | disposition home or self-care (01) ==
PROVIDERS: PCP Family Medicine; Visit Provider Family Medicine
DX: E11.9 Type 2 diabetes mellitus without complications
CPT/HCPCS: 36415; 85652; 86200; 87798; 82043; 82570; 84550; 86003; 86038; 86140; 86431; 86618

== ENCOUNTER 2024-11-06 10:16 | Emergency (ER) | payer BC, SELFPAY ==
[2024-11-06] VITALS (27 sets, daily range): BP systolic 134–140; BP diastolic 84; PULSE 75–90; RESP 12–20; TEMP 36.2; O2SAT 95–98
--- NOTE | 2024-11-06 10:15 | RT.EKG_ITS ---
APPROVED REPORT Exam: Resting ECG Reason for Exam: cardiac hx, not feeling well Patient Location: E HR:80 bpm ECG Measurements Heart Rate 80 AXIS VT 158 P 8 QRSd 87 QRS 70 QT 365 T 48 QTc 421 Conclusion Sinus rhythm...normal P axis, V-rate 60- 99 No evidence of ACS or STEMI.
--- NOTE | 2024-11-06 11:15 | RT.EKG_ITS ---
APPROVED REPORT Exam: Resting ECG Reason for Exam: chest pain Patient Location: E HR:74 bpm ECG Measurements Heart Rate 74 AXIS DC 170 P 9 QRSd 88 QRS 65 QT 382 T 45 QTc 423 Conclusion Sinus rhythm...normal P axis, V-rate 60- 99
--- NOTE | 2024-11-06 11:43 | W.ED.GENAD ---
Discharge Plan Disposition Patient Disposition: Home Condition: Fair Discharge Details Clinical Impression: Chest pain Primary Care Provider: Sandy Campos ED Provider: Palmer Malone Home Meds and New Rx's Prescriptions: No Action nitroglycerin 0.4 mg tablet, sublingual 0.4 mg sublingual Q5M PRN (Reason: chest pain) Qty: 90 12RF Rx Instructions: do not exceed 3 doses per episode 1 Tab by mouth every 5 minutes PRN clopidogrel 75 mg tablet 75 mg PO DAILY Qty: 90 6RF levothyroxine 75 mcg tablet 75 mcg PO DAILY Qty: 90 3RF (DME) FreeStyle Arsen 2 Sensor Kit See Rx Instructions .Route Qty: 6 8RF Rx Instructions: As directed. E11.9 (DME) FreeStyle Arsen 2 Sensor Kit See Rx Instructions .Route Qty: 6 3RF Rx Instructions: As directed Ell.9 atorvastatin 80 mg tablet 80 mg PO QHS Qty: 90 3RF Rx Instructions: One tab by mouth nightly sertraline [Zoloft] 100 mg tablet 100 mg PO DAILY Qty: 90 3RF losartan 25 mg tablet 25 mg PO DAILY Discharge Instructions Instructions: Chest Pain, Adult ED Referrals: Sandy Campos [place], [place] [Primary Care Provider, Medicine] - 3 days HPI General Date/Time Provider Initiated Documentation: 11/06/24 10:49. Limitations to Documentation: no limitations. Information obtained by: patient. HPI Narrative: This is a 54-year-old male presenting to the emergency department with a chief complaint of chest discomfort. Patient has a known history of coronary artery disease with stents placed approximately 4 years ago. He also reports hypercholesterolemia and borderline hypertension. Patient states couple of days ago he started to develop upper back pain that was radiating around his flank. He thought maybe he did something working in the yard although he is not significantly exerting himself. He also has a history of kidney stones that he was wondering about but he does not have lower back pain or dysuria or hematuria. Patient states that about 9:00 today while working around his truck he began to develop some chest discomfort. Patient states that exertion was minimal at best. He describes a pressure that does not radiate. It is currently only perhaps a 1 out of 10. No shortness of breath. No diaphoresis. No nausea vomiting. No recent injuries. No other illness with the exception of the mild cough. This is generally been nonproductive but sometimes has yellow sputum. No pain or swelling in the legs. No history of DVT or PE. Related Data Home Medications ?Medication ?Instructions ?Recorded ?Confirmed nitroglycerin 0.4 mg sublingual 0.4 mg sublingual Q5M PRN chest 06/21/21 11/06/24 tablet pain #90 tabs flash glucose sensor (FreeStyle #6 ea 06/26/21 11/06/24 Arsen 2 Sensor kit) clopidogrel 75 mg tablet 75 mg PO DAILY #90 tabs 02/25/22 11/06/24 flash glucose sensor (FreeStyle #6 ea 08/21/22 11/06/24 Arsen 2 Sensor kit) losartan 25 mg tablet 25 mg PO DAILY 12/01/22 11/06/24 levothyroxine 75 mcg tablet 75 mcg PO DAILY #90 tabs 06/01/24 11/06/24 atorvastatin 80 mg tablet 80 mg PO QHS #90 tab-caps 06/16/24 11/06/24 sertraline 100 mg tablet (Zoloft) 100 mg PO DAILY #90 tab-caps 07/07/24 11/06/24 Previous Rx's ?Medication ?Instructions ?Recorded nitroglycerin 0.4 mg sublingual 0.4 mg sublingual Q5M PRN chest 06/21/21 tablet pain #90 tabs flash glucose sensor (FreeStyle #6 ea 06/26/21 Arsen 2 Sensor kit) clopidogrel 75 mg tablet 75 mg PO DAILY #90 tabs 02/25/22 flash glucose sensor (FreeStyle #6 ea 08/21/22 Arsen 2 Sensor kit) levothyroxine 75 mcg tablet 75 mcg PO DAILY #90 tabs 06/01/24 atorvastatin 80 mg tablet 80 mg PO QHS #90 tab-caps 06/16/24 sertraline 100 mg tablet (Zoloft) 100 mg PO DAILY #90 tab-caps 07/07/24 Allergies Allergy/AdvReac Type Severity Reaction Status Date / Time tirzepatide (From [facility]) Allergy Severe Nausea Verified 07/21/24 16:48 morphine AdvReac vomit Verified 06/01/24 11:01 General Stated Complaint: Chest Pain SUDHIR: 3 Review of Systems All systems reviewed & are unremarkable except as noted in HPI and below Constitutional Constitutional: Reports system reviewed and no additional complaints, except as documented, Denies fever(s), Denies weakness and Denies weight loss Eyes Eyes: Denies blurry vision ENT Ears, Nose, Mouth, and Throat: Denies sore throat Cardiovascular Cardiovascular: Reports chest pain, Denies palpitations and Denies dyspnea Respiratory Respiratory: Reports cough, Denies dyspnea and Denies wheezing Gastrointestinal Gastrointestinal: Denies abdominal pain, Denies diarrhea, Denies nausea and Denies vomiting Genitourinary Genitourinary: Denies hematuria and Denies dysuria Musculoskeletal Musculoskeletal: Denies back pain, Denies arthralgias and Denies numbness Neurologic Neurologic: Denies numbness and Denies weakness Psychiatric Psychiatric: Denies suicidal ideation Endocrine Endocrine: Denies palpitations Allergic/Immunologic Allergic/Immunologic: Denies wheezing Exam Const General: no acute distress and well groomed HENMT Mouth: oral mucosae normal and moist mucous membranes Throat: posterior oropharynx normal Eyes Conjunctivae: conjunctivae normal Sclera: sclerae normal Neck Neck: full ROM and No JVD Resp Effort & Inspection: normal respiratory effort Auscultation: clear to auscultation bilaterally Cardio Rate: regular rate Rhythm: regular rhythm Heart Sounds: no murmurs GI Palpation: soft and nontender Skin General skin exam: no rashes or lesions noted Neuro General: patient alert and patient oriented x3 Extrem General: normal to inspection and full ROM Psych Appearance: grossly normal Mental Status: mental status grossly normal Speech and Movement: speech and movement normal Affect: normal affect Thought Process: normal Course Vital Signs Vital signs: Vital Signs Temperature 36.2 C L 11/06/24 10:28 Pulse 76 11/06/24 10:28 Respiratory Rate 20 11/06/24 10:28 Blood Pressure 140/84 11/06/24 10:28 Pulse Oximetry 95 11/06/24 10:28 Temperature 36.2 C L 11/06/24 10:28 Temperature Source Oral 11/06/24 10:28 Pulse 76 11/06/24 10:28 Pulse 88 11/06/24 11:30 Respiratory Rate 12 11/06/24 11:13 Respiratory Effort Normal, Non-Labored 11/06/24 11:13 Respiratory Depth Normal 11/06/24 11:13 Respiratory Pattern Normal 11/06/24 11:13 Blood Pressure 140/84 11/06/24 10:28 Blood Pressure Position Sitting 11/06/24 10:28 Pulse Oximetry 95 11/06/24 10:28 Oxygen Delivery Method Room Air 11/06/24 10:28 Oxygen Flow Rate 0 11/06/24 10:28 Pain Level 3 11/06/24 10:28 Medical Decision Making Is a 54-year-old male presenting to the emergency department with a chief complaint of chest pain in the setting of known coronary artery disease. The patient was seen and examined by me. Old charts were reviewed and nursing notes were reviewed. Patient was last seen in this emergency department in February of last year with a rib contusion. This does not appear related. Patient was maintained on cafeteria monitor with IV access. EKG reviewed by me shows normal sinus rhythm at 80 bpm. AL interval is 158. QRS is 87. QTc is 365. No acute disease. Chest x-ray did not show any acute abnormality. Serial troponins have been negative. Patient has not developed any arrhythmias or other concerning signs or symptoms. He will be discharged home to follow-up with his primary care. He can return if you have any problems or call if he has questions or concerns. Lab Data Lab results reviewed: Yes I reviewed the patient's lab results. [facility] All Active Problems (Updated 11/06/24 @ 14:49 by Palmer Malone MD) Chest pain (Acute) Obesity (Chronic) Arthralgia (Acute) Lumbar radicular pain (Acute) JON (obstructive sleep apnea) (Chronic) mod to severe CAD (coronary artery disease) (Chronic) Annual physical exam (Acute 01/24/15) Hypothyroid (Chronic) Degeneration of cervical intervertebral disc (Chronic 01/08/11) C-5 Depressive disorder (Chronic 01/08/11) Diabetes mellitus (Chronic) Hypercholesterolemia (Chronic 11/20/09) Increased body mass index (Chronic) Kidney stone (Chronic 01/08/11) Medical History Abnormal finding on thyroid function test (07/26/14) Benign neoplasm of skin of arm (01/08/11) Elevation of level of transaminase and lactic acid dehydrogenase (LDH) (11/20/09) Muscle spasm (07/22/12) Sinusitis (04/18/14) Elev transaminase/LDH 11/20/09 Benign neoplasm of skin of arm 11/29/11 left irritated palm lesion Spasm of muscle 07/22/12 Sinusitis 04/18/14 Nondisplaced fracture of lateral malleolus of left fibula, initial encounter for closed fracture (11/03/14) Chronic sinusitis, unspecified (04/18/14) Hypercholesteremia Depression Surgical History History of arthroscopy of knee H/O arthroscopy of knee right Arthroplasty of knee Right, by Dr. Redman.HE Family History Mother Personal history of malignant neoplasm ENDOMETRIAL Father Personal history of malignant neoplasm TESTICULAR Heart disease 9 BYPASS Hyperlipidemia Sister Personal history of malignant neoplasm BREAST Brother No problems noted. Grandfather No problems noted. Grandfather No problems noted. Grandmother No problems noted. Grandmother Heart disease Social History Smoking/Tobacco Use Status: Never Second Hand Exposure: Yes Smoking risk assessment performed?: Yes Alcohol Intake: never Drug use: Never Substance use type: does not use Housing: house Do you feel safe at home: Yes Do you feel safe in your relationship?: Yes
[2024-11-06 11:53] LABS: HCT 42.7 % (40.0-50.0); HGB 14.1 g/dL (13.5-17.5); MCH 26.9 pg (27.0-33.0); MCHC 33.0 % (32.0-36.0); MCV 81 fL (80-95); MPV 9.9 fL (8.0-11.0); Platelet Count 245 10^3/uL (130-400); RBC 5.25 10^6/uL (4.36-5.78); RDW 13.2 % (11.8-14.1); RDW-SD 38.5 fL; WBC 6.71 10^3/uL (4.4-10.8)
[2024-11-06 12:04] LABS: INR 1.0 (0.9-1.1); PTT Activated 24.8 sec (20.6-30.2); Prothrombin Time 10.5 sec (9.1-11.1)
[2024-11-06 12:10] LABS: Anion Gap 10.7 mmol/L (3-11); BUN 14 mg/dL (7-18); CO2 29.3 mmol/L (21.0-32.0); Calcium 9.6 mg/dL (8.5-10.1); Chloride 102 mmol/L (98-107); Estimated GFR 89.44 (mL/min/1.73m2); Glucose 107 mg/dL (74-106); Potassium 4.1 mmol/L (3.5-5.1); Sodium 142 mmol/L (136-145); Troponin I < 4 ng/L (<or=76)
--- NOTE | 2024-11-06 12:20 | DI.RAD_ITS ---
Exam(s) XR CHEST 2V PA LATERAL EXAM: XR CHEST 2V PA LATERAL CLINICAL HISTORY: cough TECHNIQUE: 2D digital imaging was performed. Two views. COMPARISON: CR,XR XR RIBS LT W PA LAT CHEST from 02/26/2023 FINDINGS: HEART: Normal size. Aorta: Not dilated. PULMONARY VASCULATURE: Normal. MEDIASTINUM: Unremarkable. LUNGS: Clear. PLEURAL SPACE: No pleural effusion or pneumothorax. BONE:Unremarkable for age. SOFT TISSUES: Unremarkable. IMPRESSION: No acute abnormality. The preliminary [facility] report was reviewed. DATA REPOSITORY: RADIATION DOSE DELIVERED:
[2024-11-06 12:56] LABS: Troponin I 4 ng/L (<or=76)
--- NOTE | 2024-11-06 13:48 | DI.VRAD_ITS ---
PROCEDURE INFORMATION: Exam: XR Chest Exam date and time: 11/06/2024 12:18 PM Age: 54 years old Clinical indication: Cough TECHNIQUE: Imaging protocol: Radiologic exam of the chest. Views: 2 views. COMPARISON: CR XR RIBS LT W PA LAT CHEST 26/02/2023 20:37 FINDINGS: Lungs: Unremarkable. No consolidation. Pleural spaces: Unremarkable. No pleural effusion. No pneumothorax. Heart/Mediastinum: Unremarkable. No cardiomegaly. Bones/joints: Multilevel degenerative changes of the spine. IMPRESSION: No acute cardiopulmonary findings. Dictated and Authenticated by: Cecilia Valenzuela MD. Orderin Faisal Chakraborty MD
[2024-11-06 14:20] LABS: Troponin I 4 ng/L (<or=76)
== END 2024-11-06 15:01 | disposition home or self-care (01) ==
PROVIDERS: Emergency Provider Emergency Medicine; PCP Family Medicine
DX: R07.9 Chest pain, unspecified (principal)
CPT/HCPCS: 99285; 99283; 36415; 80048; 80053; 85027; 93005; 71046; 84484; 85610; 85730; 93010